=== PATIENT | male | born 1945 | race Caucasian/White ===

== ENCOUNTER 2020-01-07 07:38 | Outpatient (CLI) | payer MEDICARE, SELFPAY | END 2020-01-07 07:39 | disposition home or self-care (01) | LOC: ANHAUDIO 07:40 | PROVIDERS: PCP Internal Medicine; Visit Provider Otolaryngology | DX: H90.3 Sensorineural hearing loss, bilateral (principal) | CPT/HCPCS: 92557; 92567 ==

== ENCOUNTER 2022-08-30 01:14 | Day surgery (SDC) | payer MEDICARE, SELFPAY ==
[2022-08-21 13:56] VITALS: BMI 31.1
--- NOTE | 2022-08-29 11:59 | P.PNAN_ITS ---
Anes - Initial Pre Proc Eval Procedure: Operation Date: 08/30/22 08:00 Proposed Procedures p Screening Colonoscopy - Guillermo Woods MD Date/Time: 08/29/22 11:59 Surgeon: Guillermo Woods MD Pre Op Diagnosis: neoplasm screening Patient Data Age: 77 Gender: M Height: 1.85 m Weight: 107 kg Allergies Allergy/AdvReac Type Severity Reaction Status Date / Time No Known Allergies Allergy Verified 08/30/22 06:56 Home Medications Medication Instructions Recorded Confirmed Type apixaban 5 mg tablet (Eliquis) 5 mg PO BID 12/15/19 08/30/22 History hydrochlorothiazide 25 mg tablet 25 mg PO DAILY 12/15/19 08/30/22 History trxpoizj-nfv-jjtzv acid 300 1 tablet PO DAILY 12/15/19 08/30/22 History mcg-lycopene 600 mcg-lutein 300 mcg tablet (Centrum Silver Men) spironolactone 25 mg tablet 25 mg PO DAILY 12/15/19 08/30/22 History lisinopril 40 mg tablet 40 mg PO BID 08/29/21 08/30/22 History amlodipine 10 mg tablet 10 mg PO DAILY 08/21/22 08/30/22 History atenolol 50 mg tablet 50 mg PO DAILY 08/21/22 08/30/22 History sotalol 80 mg tablet 80 mg PO DAILY 08/21/22 08/30/22 History Patient hx anesthesia problems: none Family hx anesthesia problems: none Results Review: All pre-operative results and documents have been reviewed as part of the pre- operative evaluation. [facility] Past Medical History Medical History (Updated 08/29/22 @ 15:23 by Guillermo Woods MD) A-fib Hyperlipidemia Hypertension YONNY (obstructive sleep apnea) Surgical History Surgical History (Updated 08/29/21 @ 08:53 by Aishwarya Angel CMA) History of back surgery History of foot surgery History of knee replacement History of prostate surgery Social History Social History (Updated 08/29/21 @ 08:52 by Aishwarya Angel CMA) Smoking packs per day: 0.75 Smoking cigarettes per day: 15.0 Years smoked: 25 Smoking pack-years: 18.75 Smoking status: Former smoker Tobacco type: cigarettes Alcohol intake: current Drinks per week: 6 Substance use: never Substance use type: does not use Living arrangements: with family Occupation/Education: retired Spiritual care concerns: No Anes - Eval Final PreProcedure Day of Procedure 08/29/22 11:59 Patient weight: obese Heart: regular rate and rhythm Lungs: clear to auscultation Airway: Mallampati scale class II Neurological: alert and oriented Last oral intake: >/= 8 hours ASA classification: III Emergent: no Anesthetic plan: proceed Anesthesia type and monitoring: general GIVS and standard monitoring Results Review: All pre-operative results and documents have been reviewed as part of the pre- operative evaluation. Informed Consent: The patient's anesthetic plan and its attendant risks and benefits were discussed with the patient/family/POA. Questions were solicited and answers provided to the satisfaction of the patient/family/POA.
--- NOTE | 2022-08-29 15:22 | PM.HPGS ---
History of Present Illness History of Present Illness Consent: Risks, benefits, and alternatives have been discussed and questions answered. Patient agrees to proceed with procedure. Chief complaint: neoplasm screening Narrative: Balwinder Grace is a 77 year old male who was referred for colon cancer screening. He has a history of carcinoma of the prostate. Review of Systems Review of Systems: All systems reviewed & are unremarkable except as noted in HPI and below PMFSH Past Medical History Medical History A-fib Hyperlipidemia Hypertension YONNY (obstructive sleep apnea) Surgical History Surgical History History of back surgery History of foot surgery History of knee replacement History of prostate surgery Social History Social History Smoking packs per day: 0.75 Smoking cigarettes per day: 15.0 Years smoked: 25 Smoking pack-years: 18.75 Smoking status: Former smoker Tobacco type: cigarettes Alcohol intake: current Drinks per week: 6 Substance use: never Substance use type: does not use Living arrangements: with family Occupation/Education: retired Spiritual care concerns: No Meds Home Medications and Allergies Home Medications Medication Instructions Recorded Confirmed Type apixaban 5 mg tablet (Eliquis) 5 mg PO BID 12/15/19 08/30/22 History hydrochlorothiazide 25 mg tablet 25 mg PO DAILY 12/15/19 08/30/22 History zihzrrse-ber-prkde acid 300 1 tablet PO DAILY 12/15/19 08/30/22 History mcg-lycopene 600 mcg-lutein 300 mcg tablet (Centrum Silver Men) spironolactone 25 mg tablet 25 mg PO DAILY 12/15/19 08/30/22 History lisinopril 40 mg tablet 40 mg PO BID 08/29/21 08/30/22 History amlodipine 10 mg tablet 10 mg PO DAILY 08/21/22 08/30/22 History atenolol 50 mg tablet 50 mg PO DAILY 08/21/22 08/30/22 History sotalol 80 mg tablet 80 mg PO DAILY 08/21/22 08/30/22 History Allergies Allergy/AdvReac Type Severity Reaction Status Date / Time No Known Allergies Allergy Verified 08/30/22 06:56 Exam Const: General: alert Orientation/consciousness: patient oriented x3 Resp: Auscultation: clear to auscultation bilaterally Cardio: Rhythm: regular rhythm GI: GI Palp: Yes Soft to palpation and No Tenderness to palpation present (GI) Neuro: General: patient oriented x3 Assessment and Plan Assessment and plan (1) Colon cancer screening: Code(s): Z12.11 - Encounter for screening for malignant neoplasm of colon Status: Acute Assessment and Plan: Colonoscopy with possible biopsy or polypectomy or cautery or injection of substances.
[2022-08-30 06:45] VITALS: BP 105/72; PULSE 75; RESP 16; TEMP 36.1; O2SAT 97; BMI 31.0
[2022-08-30] MEDS: LACTATED RINGERS 1,000 ML 150 ML IV CONT (07:10)
[2022-08-30 08:05] VITALS: BP 90/50; PULSE 57; RESP 15; O2SAT 94
[2022-08-30 08:15] VITALS: BP 104/49; PULSE 65; RESP 18; O2SAT 98
[2022-08-30 08:25] VITALS: BP 122/88; PULSE 69; RESP 18; O2SAT 98
== END 2022-08-30 08:34 | disposition home or self-care (01) ==
PROVIDERS: Visit Provider Internal Medicine Gastroenterology
PROC: 0DJD8ZZ Inspection of Lower Intestinal Tract, Via Natural or Artificial Opening Endoscopic (ICD-10-PCS; CPT 45378; principal; 2022-08-30 08:00)
DX: Z12.11 Encounter for screening for malignant neoplasm of colon (principal); I48.91 Unspecified atrial fibrillation; I10 Essential (primary) hypertension; E78.5 Hyperlipidemia, unspecified; G47.33 Obstructive sleep apnea (adult) (pediatric); Z87.891 Personal history of nicotine dependence; E66.9 Obesity, unspecified; Z68.31 Body mass index [BMI] 31.0-31.9, adult; Z79.01 Long term (current) use of anticoagulants; Z85.46 Personal history of malignant neoplasm of prostate
CPT/HCPCS: G0121; J2704; J7120

== ENCOUNTER 2025-03-25 13:22 | Outpatient (CLI) | payer MEDICARE, SELFPAY ==
--- NOTE | 2025-03-25 13:38 | ECG_ITS ---
Test Date: 2025-03-25 13:54:34 Measurements Intervals [place] Rate: 98 P: 0 MT: 0 QRS: 75 QRSD: 80 T: 61 QT: 336 QTc: 431 Interpretive Statements ATRIAL FIBRILLATION ABNORMAL ECG No previous ECG available for comparison Electronically Signed On 03-25-2025 17:18:35 CERTIFIED WELLNESS PROGRAM COORDINATOR by Rex Redding M.D.
[2025-03-25 15:03] LABS: Anion Gap 6 mmol/L (4-12); Blood Urea Nitrogen 22 mg/dL (9-20); Calcium 9.4 mg/dL (8.4-10.2); Carbon Dioxide 31 mmol/L (22-30); Chloride 105 mmol/L (98-107); Estimated Glomerular Filt Rate 55; Glucose 98 mg/dL (65-110); Potassium 4.6 mmol/L (3.4-5.0); Sodium 142 mmol/L (137-145)
== END 2025-03-25 13:23 | disposition home or self-care (01) ==
PROVIDERS: PCP Internal Medicine; Visit Provider Anesthesiology
DX: R93.41 Abnormal radiologic findings on diagnostic imaging of renal pelvis, ureter, or bladder (principal); I48.91 Unspecified atrial fibrillation; I10 Essential (primary) hypertension; Z87.891 Personal history of nicotine dependence
CPT/HCPCS: 36415; 80048; 93005

== ENCOUNTER 2025-03-30 00:26 | Day surgery (SDC) | payer MEDICARE, SELFPAY ==
[2025-03-24 11:07] VITALS: BMI 30.2
--- NOTE | 2025-03-24 11:21 | PC.NURSE ---
[facility] has started construction of its new state of the art ER which will open Spring 2026. With this, we anticipate parking may be a challenge for some our surgical patients and families. Parking spaces are limited but are available for all Surgical, obstetrics, and ER patients sharing this lot. If you arrive and find you are having a hard time finding a parking space, please note that we understand the challenges, please drive around the hospital and park near Hospital Entrance 1. When you enter this entrance, you can ask a volunteer to direct or take you back to the surgical waiting area to check in. We appreciate everyone?s understanding of these expected challenges while we build for your future. Report to the Outpatient Waiting Room, entrance under the green pavilion located off [address], at time __10:30am on date __03/30/25 . Planned Procedure Time: _12:30pm .? Time changes happen often and if your time is changed the preop area will call you the afternoon before. - You and your visitor will be asked to self-screen and do not enter if you have any COVID symptoms. Please call surgeon if you need to reschedule. - A mask is optional within the hospital at this time. Patients may have clear liquids (water, carbonated beverages, clear teas, apple juice) until 3 hours prior to surgery with a maximum of 20 ounces. - No food from midnight until time of surgery and no smoking, or chewing tobacco (or any form of nicotine). No chewing gum, candy or mints. (0930am) Take only the following medications with a SIP of water on the morning of surgery: ____Amlodipine DO NOT STOP ANY OF YOUR OTHER PRESCRIPTION MEDICATIONS PRIOR TO SURGERY EXCEPT THE FOLLOWING Hold all vitamins and supplements for 3 days per anesthesiologist. Date of last dose is 03/28/25 Medications to discontinue per physician HOLD Eliquis for 2 days prior to surgery per Dr Cuevas Date to take last dose___03/27/25 Please no make-up, nail nauruan, hairspray, perfume, deodorant, or body powder the day of surgery.? No jewelry (including any body piercings) or valuables the day of surgery, leave them at home.? Please take a shower or bath the night before, or the morning of, surgery with an antibacterial soap.? Wear comfortable, loose fitting clothing.? - Jewelry must be removed prior to entering the operating room.? Rings and piercings that are not removed may be cut off. - The hospital will not accept responsibility for valuables.? - Please leave all valuables, including medications, at home the day of surgery. If you are going home after surgery, a licensed class c truck driver must drive you home.? - NO public transportation without another adult if you receive anesthesia. - We recommend that an adult stay with you for 24 hours following discharge. - We also recommend that you do not drive, make important decision, drink alcoholic beverages, or take any drugs that were not prescribed by your health care provider for at least 24 hours after your discharge time. You cannot drive for 24 hours as discussed. For Pediatric surgeries, we recommend two adults accompany the child home. Follow any additional instructions given to you from your surgeon. Telephone instructions given to and asked if any additional questions and then verbalized understanding. Patient advised to call surgeon office or pre surgery nurse liaison [phone] if any additional questions.
[2025-03-30] VITALS (7 sets, daily range): BP systolic 128–158; BP diastolic 78–97; PULSE 69–93; RESP 15–16; TEMP 36.6; O2SAT 96–100
--- OUTSIDE RECORDS SUMMARY | 2025-03-30 00:29 | XMS_ITS | Encounter Summary ---
Author Organization [facility] Address [address] [place], [place] [address] [address] Care Team Providers Care Quantitative Software Engineer Name Role Phone Armand Millard MD Unavailable Christopher Bass MD Primary Care Provider Calin Ledbetter MD Unavailable [phone] Encounter Details Date Type Department Care Team (Late st Contact Info) Description 10/15/2024 Lab Requisition [facility] - DermPath Lab [address] [facility] [place] [address] Caridad Gómez MD [address] [facility] [address] [place] [address] Social History Tobacco Use Types Packs/Day Years Used Date Smoking Tobacco: Some Days Cigars Last attempted to quit: 08/21/1990 Smokeless Tobacco: Never Comments:cigars every few da ys when golf Alcohol Use Standard Drinks/Week Comments Yes 0 (1 standard drink = 0.6 oz pur e alcohol) three times a week; social Sex and Gender Information Value Date Recorded Sex Assigned at Not on file Legal Sex Male 6:23 AM DISPATCHER REFINERY Gender Identity Not on file Sexual Orientation Not on file documented as of this encounter Functional Status * Is person deaf or have serious hearing difficulty? Answer Date of Assessment Author No 10/29/2017 1:31 PM Roman Caceres RN * Is person blind or have serious difficulty seeing? Answer Date of Assessment Author No 10/29/2017 1:31 PM CDT Roman Soto RN * Does person have serious difficulty walking/climbing stairs? Answer Date of Assessment Author No 10/29/2017 1:31 PM CDT Roman Soto RN * Does person have difficulty dressing/bathing? Answer Date of Assessment Author No 10/29/2017 1:31 PM CDT Roman Soto RN * Does person have difficulty doing errands alone? Answer Date of Assessment Author No 10/29/2017 1:31 PM CDT Roman Soto RN documented as of this encounter Mental Status * Does person have difficulty concentrating/remembering/making decisions? Answer Entry Date Author No 10/29/2017 1:31 PM CDT Roman Soto RN documented in this encounter Plan of Treatment Not on file documented as of this encounter Procedures Procedure Name Priority Date/Time Associated Diagnosis Comments DERMATOPATHOLOGY Routine 10/15/2024 1:20 PM CDT documented in this encounter Results * DERMATOPATHOLOGY (10/15/2024 1:20 PM CDT) Case Report Dermatopathology Report Case: [id number] Authorizing Provider: Caridad Gómez MD Collected: 10/15/2024 01:20 PM Ordering Location: [facility] - Received: 10/16/2024 06:41 AM DermPath Lab Pathologist: Cheryl Golden MD Specimens: A) - Skin, right preauricular B) - Skin, left helix C) - Skin, left wrist D) - Skin, left ventral forearm E) - Skin, left forearm 11:44 AM CDT DERMATOPATHOLOGY LABORATORY Final Diagnosis Specimen A. SKIN, right preauricular: BASAL CELL CARCINOMA, NODULAR TYPE, WITH CLEAR CELL CHANGE (C44.319) Specimen B. SKIN, left helix: SQUAMOUS CELL CARCINOMA IN SITU, PRESENT AT THE BASE OF THE SPECIMEN (D04.22) (see microscopic description and comment) Specimen C. SKIN, left wrist: SQUAMOUS CELL CARCINOMA, WELL DIFFERENTIATED (C44.629) Specimen D. SKIN, left ventral forearm: SQUAMOUS CELL CARCINOMA IN SITU, PRESENT AT THE BASE OF THE SPECIMEN (D04.62) (see microscopic description and comment) Specimen E. SKIN, left forearm: SQUAMOUS CELL CARCINOMA, WELL DIFFERENTIATED, SUPERFICIAL PORTIONS OF (C44.629) 11:44 AM [facility] DERMATOPATHOLOGY LABORATORY at 1144 CDT Clinical History A: R/O BCC B-D: R/O SCC E: R/O BCC 11:44 AM [facility] DERMATOPATHOLOGY LABORATORY Gross Description Specimen A: Received is one formalin filled container labeled with the patient's name and designated right preauricular. The specimen consists of a shave biopsy measuring 4x3x1 mm. Jar 0. Specimen B: Received is one formalin filled container labeled with the patient's name and designated left helix. The specimen consists of a shave biopsy measuring 4x3x1 mm. Jar 0. Specimen C: Received is one formalin filled container labeled with the patient's name and designated left wrist. The specimen consists of a shave biopsy measuring 7x6x2 mm. Jar 0. Specimen D: Received is one formalin filled container labeled with the patient's name and designated left ventral forearm. The specimen consists of a shave biopsy measuring 8x7x3 mm. Jar 0. Specimen E: Received is one formalin filled container labeled with the patient's name and designated left forearm. The specimen consists of a shave biopsy measuring 7x6x1 mm. Jar 0. 11:44 AM [facility] DERMATOPATHOLOGY LABORATORY Microscopic Description Specimen A. SKIN, right preauricular: Sections show a neoplasm composed of nodular aggregations of peripherally palisaded basaloid cells, and many neoplastic cells have abundant pallid cytoplasms. Specimen B. SKIN, left helix: The epidermis shows parakeratosis, full thickness disorderly maturation of keratinocytes, mitoses at different levels, and dyskeratotic cells. The lesion extends to the base of the biopsy. COMMENT: An invasive squamous cell carcinoma cannot be ruled out. Specimen C. SKIN, left wrist: Arising in the epidermis and extending into the dermis there are irregularly shaped aggregates of keratinocytes showing evidence of premature cornification. Specimen D. SKIN, left ventral forearm: The epidermis shows parakeratosis, full thickness disorderly maturation of keratinocytes, mitoses at different levels, and dyskeratotic cells. The lesion extends to the base of the biopsy. COMMENT: An invasive squamous cell carcinoma cannot be ruled out. Specimen E. SKIN, left forearm: Arising in the epidermis and extending into the dermis there are irregularly shaped aggregates of keratinocytes showing evidence of premature cornification. The lesion extends to the base of the biopsy. 11:44 AM CDT DERMATOPATHOLOGY LABORATORY Disclaimer An external and internal positive and negative controls are appropriate for the histochemical, immunohistochemical and immunofluorescence stain(s) in this case (if any), except where stated explicitly. The performance characteristics of the stain(s) cited in this report were developed and its performance characteristic determined by the Dermatopathology Laboratory at [facility], directed by Dr. Rylee Cabrera. These tests need not be, and therefore are not, approved by the [place] Food and Drug Administration. The tests are used for clinical purposes. Billing Codes Specimen Charges Stain Charges 14107 11304 38139 32927 21232 1 1 1 1 1 11:44 AM CDT DERMATOPATHOLOGY LABORATORY Embedded Images 11:44 AM CDT DERMATOPATHOLOGY LABORATORY Pathology/Cytology TISSUE SPECIMEN FROM SKIN / Unknown 10/15/2024 1:20 PM CDT 10/16/2024 6:41 AM CDT Miscellaneous samples (specimen) TISSUE SPECIMEN FROM SKIN / Unknown 10/15/2024 1:20 PM CDT 10/16/2024 6:41 AM CDT Miscellaneous samples (specimen) TISSUE SPECIMEN FROM SKIN / Unknown 10/15/2024 1:20 PM CDT 10/16/2024 6:41 AM CDT Miscellaneous samples (specimen) TISSUE SPECIMEN FROM SKIN / Unknown 10/15/2024 1:20 PM CDT 10/16/2024 6:41 AM CDT Miscellaneous samples (specimen) TISSUE SPECIMEN FROM SKIN / Unknown 10/15/2024 1:20 PM CDT 10/16/2024 6:41 AM CDT Caridad Gómez MD LAB - PATHOLOGY/CYTOLOGY OR DERABLES Final Result DERMATOPATHOLOGY LABORATORY [facility] - Department of Dermatology [address], [address] [phone] documented in this encounter Visit Diagnoses Not on filedocumented in this encounter Care Teams Quantitative Software Engineer Relationship Specialty [place] [id number] [facility] [address] [place] [address] PCP - General Internal Medicine 01/01/14 [place] [id number] [facility] [address] [place] [address] Orthopedic Surgery 01/01/14 Calin Ledbetter MD [address] [place] [address] Vice President Of Engineering Cardiovascular Disease 09/21/14 documented as of this encounter
--- OUTSIDE RECORDS SUMMARY | 2025-03-30 00:29 | XMS_ITS ---
Author Organization [facility] Address [address] [place] [address] Care Team Providers Care Grinder And Honer Operator Automatic Name Role Phone Grabiel Barreto MD Primary Care Provider Active Problems Problem Noted Date Diagnosed Date Gout 11/05/2023 Assessment & Plan (11/10/2024 1:49 PM CDT): He is having flares despite allopurinol. Check uric acid. Avoid scallops, seafood in general, tuna, and sardines. Assessment & Plan (11/05/2023 12:47 PM CDT): Check uric acid. Titrate allopurinol for goal uric acid < 6.0. Primary osteoarthritis, right ankle and foot Hypertensive disorder 06/04/2022 Overview (02/04/2025): Hypertensive disorder Thrombocytopenia 12/16/2021 Assessment & Plan (12/16/2021 10:19 AM CDT): History of low to low-normal platelet count No signs of bleeding Will have patient follow up with PCP Onur-karl 12/13/2021 Assessment & Plan (12/16/2021 10:12 AM CDT): Admitted electively for sotalol load for symptomatic Atrial Fibrillation Primary symptom of dyspnea Ambulatory monitor revealed 99% Afib burden Started sotalol 80mg BID on 12/13 QTc stable in SR Continue sotalol 80mg BID DCCV for 12/15 to SR Continue apixaban for anticoagulation Will discharge later today Assessment & Plan (12/15/2021 12:13 PM CDT): Admitted electively for sotalol load for symptomatic Atrial Fibrillation Primary symptom of dyspnea Ambulatory monitor revealed 99% Afib burden Started sotalol 80mg BID on 12/13 QTc stable Continue sotalol 80mg BID Planned DCCV for 12/16, but patient wanting to drive himself home (cannot operate a vehicle for 24 hours post- anesthesia) Will see if anesthesia is available this afternoon Rate controlled and hemodynamically stable Continue apixaban for anticoagulation Continue to monitor on continuous telemetry Assessment & Plan (12/14/2021 12:24 PM CDT): Admitted electively for sotalol load for symptomatic Atrial Fibrillation Primary symptom of dyspnea Ambulatory monitor revealed 99% Afib burden Started sotalol 80mg BID on 12/13 QTc prolonged from admission (from .370 to .450) Holding sotalol for now May need to consider alternate agent - lower sotalol dose unlikely to be beneficial Rate controlled and hemodynamically stable Continue apixaban for anticoagulation Continue to monitor on continuous telemetry Pes anserine bursitis 09/08/2021 09/06/2022 Weakness of both lower extremities 09/08/2021 09/06/2022 Leg cramping 09/05/2021 Assessment & Plan (09/05/2021 10:24 AM CDT): Does not sound like claudication. Encouraged PO hydration. Personal history of prostate cancer 03/19/2021 Overview (03/19/2021): [place] [facility] Assessment & Plan (11/10/2024 1:48 PM CDT): No longer following with Dr. Henson. Check PSA annually. Refer back to oncology if it rises above 1.0. Assessment & Plan (11/05/2023 12:47 PM CDT): Per Dr. Henson. Assessment & Plan (11/01/2022 10:32 AM CDT): PSA's per Dr. Henson. Essential hypertension, benign 02/23/2021 Assessment & Plan (11/10/2024 1:48 PM CDT): At goal on current therapy. Assessment & Plan (11/05/2023 9:10 AM CDT): At goal on current therapy. Assessment & Plan (11/01/2022 9:14 AM CDT): At goal on current therapy. Assessment & Plan (12/15/2021 12:13 PM CDT): BP well controlled Continue amlodipine, atenolol, HCTZ, and lisinopril Assessment & Plan (12/14/2021 12:24 PM CDT): BP relatively well controlled Continue amlodipine, atenolol, HCTZ, and lisinopril Assessment & Plan (09/05/2021 10:02 AM CDT): At goal on current therapy. Assessment & Plan (02/23/2021 8:07 PM CDT): At goal on current therapy. Hyperlipidemia 02/23/2021 Assessment & Plan (11/10/2024 1:48 PM CDT): Check lipids. Cholesterol has not been high enough to warrant statin therapy. Assessment & Plan (11/01/2022 10:32 AM CDT): At goal on current therapy. Assessment & Plan (09/05/2021 10:02 AM CDT): At goal on current therapy. Assessment & Plan (02/23/2021 8:07 PM CDT): LDL at goal without the need for medications. Medicare annual wellness visit, subsequent 02/23 Assessment & Plan (11/10/2024 1:49 PM CDT): Exercise 30 minutes per day 5x weekly. Eat heart healthy (Mediterranean) diet of fruits, vegetables, and whole grains; avoid saturated fats and excess sweets. Colonoscopy due in 2032. Vaccinations are current - recommend flu and COVID shots this fall. Assessment & Plan (11/05/2023 12:49 PM CDT): Exercise 30 minutes per day 5x weekly. Eat heart healthy (Mediterranean) diet of fruits, vegetables, and whole grains; avoid saturated fats and excess sweets. Colonoscopy was normal in 2022; consider repeat in 2032 depending on his health. I recommended a COVID and flu vaccine this fall. Assessment & Plan (01/23/2022 11:04 AM CDT): Reviewed September 2021 labs Follows with Cardiology, Oncology and Sleep Medicine Needs Tdap, annual influenza Will verify PCV13/23 Continue 150 min/weekly of moderate intensity activity Colonoscopy referral Assessment & Plan (02/23/2021 8:08 PM CDT): More than 100 cigarette history and age 76 - screen for AAA with US. Actinic keratosis 08/04/2020 Obesity 08/04/2020 Senile purpura 08/04/2020 YONNY (obstructive sleep apnea) 03/04/2020 Assessment & Plan (11/10/2024 1:49 PM CDT): YONNY. Assessment & Plan (12/14/2021 12:22 PM CDT): Continue CPAP Primary generalized hypertrophic osteoarthrosis 03/04/2020 Assessment & Plan (03/04/2020 10:03 AM CDT): May use topical NSAID (Voltaren) OTC Tylenol PRN (use, s/e reviewed) Chronic atrial fibrillation 03/04/2020 Assessment & Plan (11/10/2024 1:48 PM CDT): Per cardiology. Assessment & Plan (11/05/2023 12:51 PM CDT): Per cardiology. Assessment & Plan (11/01/2022 9:14 AM CDT): Remains on sotalol, atenolol, Eliquis. Sees Dr. Ledbetter. Assessment & Plan (02/23/2021 8:08 PM CDT): Stable. On BB and AC. Management per cards. Current use of correction anticoagulation 020 Current Treatment and Therapy Plans No current plan information found. Past Treatment and Therapy Plans No past plan information found. Lifetime Dose Tracking * Chemical Lifetime Dose Automatic Entry Manual Entr y DLP 237 mGycm 237 mGycm 0 mGycm Resolved Problems Problem Noted Date Diagnosed Date Resolved Date Dyspnea 09/05/2021 01/23/2022 Assessment & Plan (09/05/2021 10:23 AM CDT): This may be due to some combination of deconditioning and afib. I have recommended that he call his medical office representative Dr. Ledbetter to determine if any change in management strategy for his afib is in order (whether he needs a rhythm control strategy or cardioversion). I do not think a stress test is necessary at this time, but will defer any decision about stress testing to his medical office representative. Pain in right hand 03/04/2020 Assessment & Plan (03/04/2020 10:02 AM CDT): Xray and uric acid/BMP today Will refer for possible injections per Ortho based on results of above Prostate cancer 09/30/2019 03/04/2020
--- OUTSIDE RECORDS SUMMARY | 2025-03-30 00:29 | XMS_ITS | Clinical Summary ---
Author Organization [facility] Address [address] [place] [address] Care Team Providers Care Data Management Manager Name Role Phone Grabiel Barreto MD Primary Care Provider Allergies No known active allergies Medications [id number] -lycopen-lutein (CENTRUM SILVER ULTRA MEN'S) 300-600-300 mcg tabletIndicatio ns:supplement Take 1 tablet by mouth nightly 0 Active Eliquis 5 mg tablet TAKE 1 TABLET BY MOUTH TWICE DAILY 180 tablet 3 2 Active hydroCHLOROthia zide (HYDRODIURIL) 25 mg tablet TAKE 1 TABLET BY MOUTH DAILY 90 tablet 3 2 Active spironolactone (ALDACTONE) 25 mg tablet TAKE 1 TABLET BY MOUTH DAILY 90 tablet 3 2 Active lisinopriL (PRINIVIL,ZESTR IL) 40 mg tablet TAKE 1 TABLET BY MOUTH TWICE DAILY 180 tablet 3 2 Active atenoloL (TENORMIN) 50 mg tablet 3 Active allopurinoL (ZYLOPRIM) 100 mg tablet 4 Active mupirocin (BACTROBAN) 2 % ointment 1 APPLIC TOPICALLY THREE TIMES A DAY FOR NOSE BLEEDS APPLY INTRANASALLY TO THE RIGHT NOSTRIL. 4 Active tobramycin-dexA METHasone (TOBRADEX) ophthalmic solution 4 Active erythromycin (ILOTYCIN) ophthalmic ointment Active colchicine (COLCRYS) 0.6 mg tablet TAKE 1 TABLET BY MOUTH TWICE A DAY FOR 3 DAYS THEN TAKE 1 TABLET BY MOUTH DAILY X1 MONTH 99 tablet 1 5 Active Active Problems Problem Noted Date Diagnosed Date [...] Will have patient follow up with PCP A-karl 12/13/2021 Assessment & Plan (12/16/2021 10:12 AM [...] history of prostate cancer 03/19/2021 Overview (03/19/2021): Rosamond 9 Assessment & Plan (11/10/2024 1:48 PM [...] AC. Management per cards. Current use of retirement anticoagulation 020 Resolved Problems Problem Noted Date Diagnosed Date Resolved Date Dyspnea 09/05/2021 01/23/2022 Assessment & Plan (09/05/2021 10:23 AM CDT): This may be due to some combination of deconditioning and afib. I have recommended that he call his hostler helper Dr. Ledbetter to determine if any change in management strategy for his afib is in order (whether he needs a rhythm control strategy or cardioversion). I do not think a stress test is necessary at this time, but will defer any decision about stress testing to his hostler helper. Pain in right hand 03/04/2020 2 Assessment & Plan (03/04/2020 10:02 AM CDT): Xray and uric acid/BMP today Will refer for possible injections per Ortho based on results of above Prostate cancer 09/30/2019 03/04/2020 Encounters Date Type Department Care Team Description 03/24/[address] [facility] Medicine Cardiology [address] 8[address] [place] [address] [place] [address] Calin Ledbetter MD 02/09/2025 11:05 AM CDT Lab [place] [id number] Acute idiopathic gout of right foot (Primary Dx) 02/04/2025 9:30 AM CDT Office Visit [facility] Orthopaedic Surgery [address] 6[address] [place] [address] [place] [address] Trevon Abraham MD Arthritis of carpometacarpal (CMC) joint of right thumb (Primary Dx); Trigger finger of right thumb from Last 3 Months Immunizations Immunization Administration Dates Next Due Pfizer SARS-CoV-2 Monovalent Vaccination (12+ Yrs) PURPLE 06/11/2020,05/27/2020 Surgical History Surgery Date Site/Laterality Comments [place] PROSTECT RETROPUB RAD W/WO NRV SPAR & BI PLV LYM Prostatect Retropubic Radical W/ Bilat Pelv Lymphadenectomy - glimar 4+08 February 2005 (Added by TW Conv) KNEE ARTHROPLASTY Left KNEE ARTHROPLASTY Right CATARACT EXTRACTION W/ INTRAOCULAR LENS IMPLANT 05/07/2016 - 05/06/2017 Left CATARACT EXTRACTION W/ INTRAOCULAR LENS IMPLANT 05/07/2017 - 05/06/2018 Right LUMBAR SPINE SURGERY 1990s x 3; L4-5; L5-S1 HEMORRHOID SURGERY CARDIAC CATHETERIZATION 05/07/1998 - 05/06/1999 pt report after false positive stress CARDIOVERSION 05/07/2011 - 05/06/2012 Medical History Medical History Date Comments Encounter for immunization Need for prophylactic vaccination and inoculation against influenza - Vaccines Prophylactic Need Against Influenza (Added by TW Conv) Personal history of malignan t neoplasm of prostate History of prostate cancer - Gilmar 4+5, Right seminal vesicle involvement. s/p RRP, XRT 06/12 and HT (Added by TW Conv) Arthritis Atrial fibrillation (HCC) Hypertension Spinal stenosis YONNY on CPAP Prostate cancer (HCC) 09/30/2019 Gout Family History Medical History Relation Name Comments Arthritis Father Family history of arthritis - (Added by TW Conv) Cancer Father Family history of malignant neoplasm - (Added by TW Conv) Hypertension Father Family history of hypertension - (Added by TW Conv) Cancer Mother Family history of malignant neoplasm - (Added by TW Conv) Hypertension Mother Family history of hypertension - (Added by TW Conv) Anesthesia problems Neg Hx Heart disease Neg Hx Stroke Neg Hx Relation Name Status Comments Father Mother Social History Tobacco Use Types Packs/Day Years Used Date Smoking Tobacco: Some Days Cigarettes Started: 1964; Last attempted to quit: 1990 Cigars Smokeless Tobacco: Never Tobacco Cessation:Ready to Q uit: Not Asked; Counseling Given: Not Answered Alcohol Use Standard Drinks/Week Comments Yes 0 (1 standard drink = 0.6 oz pur e alcohol) 8/week AUDIT-C Answer Date Recorded Q1: How often do you have a drink containing alc ohol? Monthly or less 12/15/2021 Q2: How many drinks containi ng alcohol do you have on a typical day when you are drinking? 1 or 2 12/15/2021 Q3: How often do you have si x or more drinks on one occasion? Never 12/15/2021 PHQ-2 Answer Date Recorded PHQ-2 Total Score (If total score is 3 or more points, staff should administer the PHQ-9) 0 11/10/2024 Exercise Vital Sign Answer Date Recorde d On average, how many days pe r week do you engage in moderate to strenuous exercise (like a brisk walk)? 0 days 02/23/2021 On average, how many minutes do you engage in exercise at this level? 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 Gender Identity Not on file Sexual Orientation Not on file Last Filed Vital Signs Vital Sign Reading Time Taken Comments Blood Pressure 104/69 11/10/2024 9:40 AM CDT Pulse 91 11/10/2024 9:40 AM CDT Temperature 36.6 C (97.8 F) 09/09/2024 8:50 AM CDT Respiratory Rate 18 09/09/2024 8:50 AM CDT Oxygen Saturation 97% 11/10/2024 9:40 AM CDT Inhaled Oxygen Concentration - - Weight 106.5 kg (234 lb 12.8 oz) 11/10/2024 9:40 AM CDT Height 180.3 cm (5' 11) 11/10/2024 9:40 AM CDT Body Mass Index 32.75 11/10/2024 9:40 AM CDT Plan of Treatment Scheduled Procedures Name Priority Associated Diagnoses Date/Ti me COLONOSCOPY Colon cancer screening COLONOSCOPY Screening for malignant neoplasm of colon COLONOSCOPY Colon cancer screening Health Maintenance Due Date Last Done Comments DTaP/Tdap/Td Vaccine (1 - Tdap) 1956 Pneumococcal vaccine 65+ (2 of 2 - PCV) 05/07/2015 05/07/2014 Covid-19 Vaccine (3 - 2024-2 6 season) 2025 06/11/2020, 05/27/2020 Influenza Vaccine (#1) 2025 9, 02/11/2018, 02/16/2017, Additional history exists Depression Screening 11/10/2025 11/10/2024, 11/10/2024, 11/05/2023, Additional history exists Fall Risk Assessment 11/10/2025 11/10/2024, 11/05/2023, 01/23/2022, Additional history exists Well Visit 65+ 11/10/2025 11/10/2024, 05/2023, 01/23/2022, Additional history exists Zoster Vaccine Completed 12/19/2017, 09/06, 05/10/2010 Abdominal Aortic Aneurysm (A AA) Screen Completed 04/01/2021 Hepatitis B Screening Completed 11/10/2024 Hepatitis C Screening Completed 11/10/2024 Procedures Procedure Name Priority Date/Time Associated Diagnosis Comments EGFR Routine 02/09/2025 11:10 AM CDT Acute idiopathic gout of right foot URIC ACID Routine 02/09/2025 11:10 AM CDT Acute idiopathic gout of right foot COMPREHENSIVE METABOLIC PANEL Routine 02/09/2025 11:10 AM CDT Acute idiopathic gout of right foot [place] INJECTION 1 TENDON SHEATH/LIGAMENT APONEUROSIS Routine 02/04/2025 9:30 AM CDT Trigger finger of right thumb HEPATITIS C ANTIBODY Routine 11/10/2024 10:00 AM CDT Encounter for hepatitis C screening test for low risk patient US ABDOMINAL AORTIC ANEURYSM SCREENING Schedule Routine, Read Routine (OP Routine) 04/01/2021 9:00 AM PIN MAKER Encounter for abdominal aortic aneurysm (AAA) screening from Last 3 Months or Most Recently Relevant to Health Maintenance Results * eGFR (02/09/2025 11:10 AM CDT) eGFR 71 >=60 mL/min/1. 73 m2 Comment: Interpretive Data Reference Interval Normal >/= 90 mL/min/1.73m2 Mildly decreased* 60 - 89 mL/min/1.73m2 Mildly to moderately decreased 45 - 59 mL/min/1.73m2 Moderately to severely decreased 30 - 44 mL/min/1.73m2 Severely decreased 15 - 29 mL/min/1.73m2 Kidney Failure < 15 mL/min/1.73m2 *Relative to young adult level Estimated glomerular filtration rate is determined by the 2020 CKD-EPI equation recommended by the National Kidney Foundation (A Unifying Approach to GFR Estimation: Recommendations of the NKF-ASK Task Force on Reassessing the Inclusion of Race in Diagnosing Kidney Disease, JASN 2020). The CKD-EPI equation should not be used for patients with unstable renal function and has not been validated in children and those over 70. Current interpretive data was last reviewed 2021. Blood 02/09/2025 11:1 0 AM CDT 02/09/2025 1:52 PM CDT Saúl Carpio Jr., DP LAB BLOOD ORDERABLES F inal Result Performing Organization Address City/[facility] Co de Phone Number [address] [address] * Uric acid (02/09/2025 11:10 AM CDT) Pathologist [facility] Uric acid 3.8 3.0 - 8.0 mg/dL Blood Venous blood specimen / Unknown 02/09/2025 11:10 AM CDT 02/09/2025 1:52 PM CDT Saúl Carpio Jr., [facility] LAB BLOOD ORDERABLES F inal Result Performing Organization Address [facility] de Phone Number [address] [address] * Comprehensive metabolic panel (02/09/2025 11:10 AM CDT) [facility] Sodium 138 135 - 145 mmol/L Potassium, pl 4.8 3.3 - 4.9 mmol/L [facility] Chloride 102 97 - 110 mmol/L [facility] CO2 27 22 - 32 mmol/L [facility] Anion gap 9 2 - 15 mmol/L [facility] BUN 20 6 - 25 mg/dL [facility] Creatinine 1.07 0.80 - 1.30 mg/dL [facility] Glucose 95 70 - 199 mg/dL [facility] Comment: Interpretive Data Fasting glucose >/= 126 mg/dl is diagnostic for diabetes. Fasting is defined as no caloric intake for at least 8 hours. Fasting glucose between 100 mg/dl to 125 mg/dl is diagnostic of prediabetes. In a patient with classic symptoms of hyperglycemia or hyperglycemic crisis, a random glucose >/= 200 mg/dl is diagnostic for diabetes. In the absence of unequivocal hyperglycemia, results should be confirmed by repeat testing. The classification and Diagnosis of Diabetes Diabetes Care 2021; 46: S19-S40. Current interpretive data was last revised 2022. Calcium 9.3 8.5 - 10.3 mg/dL [facility] Bilirubin, total 0.7 0.1 - 1.2 mg/dL [facility] Protein, pl 7.3 6.5 - 8.5 g/dL [facility] Albumin 4.2 3.5 - 5.0 g/dL [facility] Alk phos 41 40 - 130 Units/L [facility] ALT 21 7 - 55 Units/L [facility] AST 36 10 - 50 Units/L [facility] Blood Venous blood specimen / Unknown 02/09/2025 11:10 AM CDT 02/09/2025 1:52 PM CDT us Saúl Carpio Jr., DPM LAB BLOOD ORDERABLES F inal Result [facility] [address] [facility] Department [place] [address] * [place] INJECTION 1 TENDON SHEATH/LIGAMENT APONEUROSIS (02/04/2025 9:30 AM CDT) Narrative Trevon Abraham MD - 02/04/2025 9:30 AM CDT Trevon Abraham MD 02/04/2025 8:20 PM Hand / Upper Extremity Injection: R thumb A1 Performed by: Trevon Abraham MD Authorized by: Trevon Abraham MD Consent Given by: Patient Verbal consent obtained?: Yes Indications: Pain Condition: trigger finger Location: Thumb Site: R thumb A1 Prep: patient was prepped and draped in usual sterile fashion Needle Size: 25 G Approach: Dorsal Medications Right Thumb Injection: 1 mL lidocaine 10 mg/mL (1 %); 40 mg methylPREDNISolone acetate 40 mg/mL Patient tolerance: Patient tolerated the procedure well with no immediate complications After a discussion of the pros, cons, risks, and benefits of a cortisone injection, the patient requested that we proceed. We specifically discussed the risks of skin lightening, subcutaneous fat atrophy, pain upon injection and the possibility of a flare reaction. The patient wished to proceed. us Trevon Abraham MD IN CLINIC/BEDSIDE ORDERAB LES Final Result * Hepatitis C antibody Blood (11/10/2024 10:00 AM CDT) A-HCV II 0.06 Negative <0.90 [facility] GMDA Comment: <=0.9 negative 0.9-<1.0 borderline >= 1 positive Blood 11/10/2024 10:0 0 AM CDT 11/10/2024 10:12 AM CDT us Grabiel Barreto MD LAB MICROBIOLOGY - GENE RAL ORDERABLES Final Result [facility] [address] [id number] * US Abdominal Aortic Aneurysm Screening (04/01/2021 9:00 AM PIN MAKER) Anatomical Region Laterality Modality Abdomen Ultrasound 04/01/2021 2:31 PM PIN MAKER Impressions 04/01/2021 2:31 PM PIN MAKER UNREMARKABLE ABDOMINAL AORTA. Electronically signed by: Tad Ochoa M.D. Narrative 04/01/2021 2:31 PM PIN MAKER EXAMINATION: US ABDOMINAL AORTIC ANEURYSM SCREENING HISTORY: ] Tobacco Abuse, screening for aneurysm ORDER DATE: 04/01/2021 8:30 AM COMPARISON: None TECHNIQUE: Sonogram of the abdominal aorta is performed for purposes of visualization of the aortic outline and measurements obtained at the upper mid and lower abdominal levels including the common iliac vessels. FINDINGS: Cross-sectional diameter in the upper aorta is 24 mm, mid aorta 20 mm, distal aorta 20 mm. As visualized, there is no aortic aneurysm. The aorta is approximately 18 mm in diameter. It demonstrates minimal wall thickening Procedure Note Tad Ochoa MD - 04/01/2021 EXAMINATION: US ABDOMINAL AORTIC ANEURYSM SCREENING HISTORY: ] Tobacco Abuse, screening for aneurysm ORDER DATE: 04/01/2021 8:30 AM COMPARISON: None TECHNIQUE: Sonogram of the abdominal aorta is performed for purposes of visualization of the aortic outline and measurements obtained at the upper mid and lower abdominal levels including the common iliac vessels. FINDINGS: Cross-sectional diameter in the upper aorta is 24 mm, mid aorta 20 mm, distal aorta 20 mm. As visualized, there is no aortic aneurysm. The aorta is approximately 18 mm in diameter. It demonstrates minimal wall thickening IMPRESSION: UNREMARKABLE ABDOMINAL AORTA. Electronically signed by: Tad Ochoa M.D. Grabiel Barreto MD [facility] PROCEDURES Final Result from Last 3 Months or Most Recently Relevant to Health Maintenance Insurance MEDICARE [facility] MEDICARE [facility] MEDICARE [facility] MEDICARE [facility] MEDICARE [facility] [place] [address] [phone] Advance Directives For more information, please contact: [phone] * Full Code (Latest Code Status on File) Date Activated Date Inactivated Comments 12/13/2021 1:43 PM 12/16/2021 4:38 PM Care Teams Data Management Manager Relationship Specialty Start Date End Date Grabiel Barreto MD PCP - General Endocrinology Diabetes & Metabolism 02/23/21
--- OUTSIDE RECORDS SUMMARY | 2025-03-30 00:29 | XMS_ITS | Encounter Summary ---
Author Organization [facility] Address [address] [place] [address] Phone Care Team Providers Care Physical Sciences Instructor Name Role Phone Christopher Bass MD Primary Care Provider [phone] Grabiel Barreto MD Primary Care Provider Christopher Bass MD Primary Care Provider [phone] Grabiel Barreto MD Primary Care Provider Encounter Details Date Type Department Care Team (Late st Contact Info) Description 09/21/2017 Orders Only 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 Gender Identity Not on file Sexual Orientation Not on file documented as of this encounter Plan of Treatment Scheduled Procedures Name Priority Associated Diagnoses Date/Ti me COLONOSCOPY Colon cancer screening COLONOSCOPY Screening for malignant neoplasm of colon COLONOSCOPY Colon cancer screening documented as of this encounter Procedures Procedure Name Priority Date/Time Associated Diagnosis Comments DISCHARGE LABORATORY CUMULATIVE REPORT 09/21/2017 12:00 AM CDT documented in this encounter Results * DISCHARGE LABORATORY CUMULATIVE REPORT (09/21/2017 12:00 AM CDT) Narrative 09/21/2017 12:00 AM CDT Ordered by an unspecified provider. Historical Provider LAB BLOOD ORDERABLES Alida l Result documented in this encounter Visit Diagnoses Not on filedocumented in this encounter Additional Health Concerns Infection Onset Date Last Indicated Resolved Time Exposure, COVID-19 Comment:Added automatically based on COVID19 lab answers indicating exposure risk 02/12/2023 02/12/2023 02/22/2023 3:05 AM C DT COVID: Suspected 02/12/2023 02/12/2023 02/12/2023 10:17 AM CDT COVID: Suspected 02/12/2023 02/12/2023 02/12/2023 3:31 PM CDT COVID: Suspected 11/30/2023 11/30/2023 11/30/2023 3:20 PM CDT COVID19 11/30/2023 11/30/2023 12/10/2023 3:05 AM CDT COVID: Recovered Comment:Added based on recent COVID infection. 12/10/2023 01/02/2024 03/09/2024 3:[address] COVID: Suspected 01/02/2024 01/02/2024 01/02/2024 8:41 AM CDT documented as of this encounter Care Teams Physical Sciences Instructor Relationship Specialty Start Date End Date Christopher Bass MD [address] [address] PCP - General 08/22/16 11/03/20 Grabiel Barreto MD [address] [address] PCP - General Endocrinology Diabetes & Metabolism 11/04/20 12/13/20 Christopher Bass MD [address] [address] PCP - General 12/14/20 02/22/21 Grabiel Barreto MD [address] [address] PCP - General Endocrinology Diabetes & Metabolism 02/23/21 documented as of this encounter
--- OUTSIDE RECORDS SUMMARY | 2025-03-30 00:30 | XMS_ITS | Encounter Summary ---
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 Answer Date of Assessment Author No 10/29/2017 1:31 PM Roman Caceres RN * Is person blind or have serious difficulty seeing? Answer Date of Assessment Author No 10/29/2017 1:31 PM Roman Caceres RN * Does person have serious difficulty [...] Procedure Name Priority Date/Time Associated Diagnosis Comments SARS-COV-2 (COVID-19) IN HOUSE Routine 10/10/2019 12:57 PM CDT documented in this encounter Results * SARS-COV-2 (COVID-19) IN HOUSE (10/10/2019 12:57 PM CDT) COVID-19 PCR Not detected Not detected, Invalid 10/11/2019 10:22 PM CDT [facility] Microbiology SPECIMEN FROM NASOPHARYNGEAL STRUCTURE / Unknown Collection / Unknown 10/10/2019 12:57 PM CDT 10/11/2019 1:26 PM CDT Narrative [facility] - 10/11/2019 10:22 PM CDT This Real Time RT-PCR assay was developed and its performance characteristics determined by [facility]. This test has been authorized by the Food and Drug administration (FDA)under an Emergency Use Authorization (EUA). This test has been validated in accordance with the FDA's guidance document Policy for Diagnostic Testing in Laboratories Certified to perform High Complexity Testing under CLIA prior to Emergency Use Authorization for Coronavirus Disease-2019 during the Public Health Emergency issued on July 05, 2019. FDA independent review of this validation is pending. This test is only authorized for the duration of time the declaration that circumstances exist justifying the authorization of emergency use of in vitro diagnostic tests for detection of SARS-CoV-2 virus and/or diagnosis of COVID-19 infection under section 564(b)(1) of the Act, 21 U.S.C 360bbb-3 (b)(1), unless the authorization is terminated or revoked sooner. us LAB - MICROBIOLOGY ORDERABLES Fi nal Result [facility] [address] [place] [address], [facility] [phone] documented in this encounter Visit Diagnoses Not on filedocumented in this encounter Additional Health Concerns Infection Onset Date Last Indicated Resolved Time COVID-19 Under Investigation 10/11/2019 10/10/2019 10/11/2019 10:22 PM CDT documented as of this encounter Care Teams Body Welder Relationship Specialty [place] [address] [place] [address] PCP - General Internal Medicine 01/01/14 [place] [address] [address] [place] [address] Orthopedic Surgery 01/01/14 Calin Ledbetter MD [address] [place] [address] Body Welder Cardiovascular Disease 09/21/14 documented as of this encounter
--- OUTSIDE RECORDS SUMMARY | 2025-03-30 00:30 | XMS_ITS | Encounter Summary ---
Author Organization [facility] Address [address] [place] [address] [place] [address] Care Team Providers Care Bottling Machine Operator Name Role Phone Armand Millard MD Unavailable [phone] Christopher Bass MD Primary Care Provider Calin Ledbetter MD Unavailable [phone] Encounter Details Date Type Department Care Team (Late st Contact Info) Description 11/20/2019 Lab Requisition [facility] Care DermPath Lab [address] [place] [id number] Lázaro [place] [address] Social History Tobacco Use Types Packs/Day Years [...] on file 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 0 4:51 PM CDT DERMATOPATHOLOGY LABORATORY Gross Description Specimen A: Received is one formalin filled container labeled with the patient's name and designated right upper cutaneous lip. The specimen consists of a shave biopsy measuring 4v1x8gw. Jar 0. 0 4:51 PM CDT DERMATOPATHOLOGY LABORATORY Microscopic Description Specimen A. SKIN, right upper cutaneous lip: In the dermis, there are dilated vascular spaces surrounded by widely spaced endothelial cells. 0 4:51 PM CDT DERMATOPATHOLOGY LABORATORY Disclaimer An external and internal positive and negative controls are appropriate for the histochemical, immunohistochemical and immunofluorescence stain(s) in this case (if any), except where stated explicitly. The performance characteristics of the stain(s) cited in this report were developed and its performance characteristic determined by the Dermatopathology Laboratory at [facility], directed by Dr. Rylee Cabrera. These tests need not be, and therefore are not, approved by the [place] Food and Drug Administration. The tests are used for clinical purposes. Billing Codes Specimen Charges Stain Charges 14965 1 0 4:51 PM CDT DERMATOPATHOLOGY LABORATORY Embedded Images 0 4:51 PM CDT DERMATOPATHOLOGY LABORATORY Pathology/Cytolog y TISSUE SPECIMEN FROM SKIN / Unknown 11/19/2019 11/20/2019 12:50 PM CDT Lázaro Bryan MD LAB - PATHOLOGY/CYTOLOGY ORD ERABLES Final Result DERMATOPATHOLOGY LABORATORY [facility] - Department of Dermatology Data Warehousing Manager Center/[address] [phone] documented in this encounter Visit Diagnoses Not on filedocumented in this encounter Care Teams Bottling Machine Operator Relationship Specialty [place] [address] [place] [address] PCP - General Internal Medicine 01/01/14 [place] [address] [place] [address] Orthopedic Surgery 01/01/14 Calin Ledbetter MD [address] [place] [address] Wagon Washer Cardiovascular Disease 09/21/14 documented as of this encounter
--- OUTSIDE RECORDS SUMMARY | 2025-03-30 00:30 | XMS_ITS | Encounter Summary ---
Author Organization [facility] Address [address] [place] [address] [place] [address] Care Team Providers Care Hydramatic Specialist Name Role Phone Armand Millard MD Unavailable [phone] Christopher Bass MD Primary Care Provider Calin Ledbetter MD Unavailable [phone] Encounter Details Date Type Department Care Team (Late st Contact Info) Description 11/03/2020 Lab Requisition [facility] Care DermPath Lab [address] [place] [phone] Lázaro [place] [address] Social History Tobacco Use Types Packs/Day Years [...] on file 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 Gender Identity Not on file Sexual Orientation [...] Entry Date Author No 10/29/2017 1:31 PM Roman Caceres RN documented in this encounter Plan of Treatment Not on file documented as of this encounter Procedures Procedure Name Priority Date/Time Associated Diagnosis Comments DERMATOPATHOLOGY Routine 11/02/2020 12:0 0 AM CDT documented in this encounter Results * DERMATOPATHOLOGY (11/02/2020 12:00 AM CDT) Case Report Dermatopathology Report Case: [id number] Authorizing Provider: Lázaro Bryan MD Collected: 11/02/2020 12:00 AM Ordering Location: [facility] DermPath Lab Received: 11/03/2020 01:16 PM Pathologist: Brook Golden MD Specimens: A) - Skin, left mid clavicle B) - Skin, below right apical triangle of lip C) - Skin, right lateral cutaneous lip 7:58 AM CDT DERMATOPATHOLOGY LABORATORY Amended Report Amendment: Site A: Changed left mid clavicle to left medial clavicle Site C: Changed from right lateral cutaneous lip to right lateral upper cutaneous lip. 7:58 AM CDT DERMATOPATHOLOGY LABORATORY Final Diagnosis Specimen A. 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 SKIN, below right apical triangle of lip: FOLLICULITIS, SUPPURATIVE; IN ASSOCIATION WITH INTRAFOLLICULAR BACTERIA AND GRANULOMATOUS DERMATITIS CONSISTENT WITH RUPTURE (L73.8) (see microscopic description and comment) Specimen C. SKIN, right lateral upper cutaneous lip: BASAL CELL CARCINOMA, NODULAR TYPE (C44.319) 7:58 AM CDT DERMATOPATHOLOGY LABORATORY Amendment electronically signed by Brook Golden MD on 11/25/2020 at 0758 CDT at 1445 CDT Clinical History A-C: R/O BCC. 7:58 AM CDT DERMATOPATHOLOGY LABORATORY Gross Description Specimen A: Received is one formalin filled container labeled with the patient's name and designated left mid clavicle. The specimen consists of a shave biopsy measuring 64p8q4vj. Jar 0. Specimen B: Received is one formalin filled container labeled with the patient's name and designated below right apical triangle of lip. The specimen consists of a shave biopsy measuring 8k2n5ye. Jar 0. Specimen C: Received is one formalin filled container labeled with the patient's name and designated right lateral cutaneous lip. The specimen consists of a shave biopsy measuring 9u6w1sj. Jar 0. 7:58 AM CDT DERMATOPATHOLOGY LABORATORY Microscopic Description Specimen A. SKIN, left medial clavicle: The epidermis shows parakeratosis, full thickness disorderly maturation of keratinocytes, mitoses at different levels, and dyskeratotic cells. Sections show an adjacent acanthotic lesion composed of relatively uniform keratinocytes. There is hyperkeratosis and pseudo horn cysts formation. Specimen B. SKIN, below right apical triangle of lip: Epidermis and portions of superficial dermis are present for evaluation. Sections show rupture of the follicular infundibulum, with numerous neutrophils. Neutrophils, histiocytes, and multinucleated giant cells are present within the adjacent superficial dermis. Tissue gram stain highlights intrafollicular bacterial cocci and rods. Grocott's methenamine silver (GMS) stain fails to highlight fungal elements in the available sections. COMMENT: Clinical correlation with culture is recommended if clinically indicated. Specimen C. SKIN, right lateral upper cutaneous lip: Within the dermis there are aggregates of basaloid cells with a high nuclear to cytoplasmic ratio and peripheral palisading. 7:58 AM CDT DERMATOPATHOLOGY LABORATORY Disclaimer An external and internal positive and negative controls are appropriate for the histochemical, immunohistochemical and immunofluorescence stain(s) in this case (if any), except where stated explicitly. The performance characteristics of the stain(s) cited in this report were developed and its performance characteristic determined by the Dermatopathology Laboratory at [facility], directed by Dr. Rylee Cabrera. These tests need not be, and therefore are not, approved by the [place] Food and Drug Administration. The tests are used for clinical purposes. Billing Codes Specimen Charges Stain Charges 12060 98462 97374 1 1 1 81634 47140 1 1 1 7:58 AM CDT DERMATOPATHOLOGY LABORATORY Embedded Images 1 7:58 AM CDT DERMATOPATHOLOGY LABORATORY Pathology/Cytology TISSUE SPECIMEN FROM SKIN / Unknown 11/02/2020 11/03/2020 1:16 PM CDT Miscellaneous samples (specimen) TISSUE SPECIMEN FROM SKIN / Unknown 11/02/2020 11/03/2020 1:16 PM CDT Miscellaneous samples (specimen) TISSUE SPECIMEN FROM SKIN / Unknown 11/02/2020 11/03/2020 1:16 PM CDT Lázaro Bryan MD LAB - PATHOLOGY/CYTOLOGY ORD ERABLES Edited Result - Final DERMATOPATHOLOGY LABORATORY [facility] - Department of Dermatology [facility] Medicine [address] [place] [address], [address] [phone] documented in this encounter Visit Diagnoses Not on filedocumented in this encounter Care Teams Hydramatic Specialist Relationship Specialty [place] [address] [place] [address] PCP - General Internal Medicine 01/01/14 [place] [address] [place] [address] Orthopedic Surgery 01/01/14 Calin Ledbetter MD [address] [place] [phone] Loan Broker Cardiovascular Disease 09/21/14 documented as of this encounter
--- OUTSIDE RECORDS SUMMARY | 2025-03-30 00:30 | XMS_ITS | Encounter Summary ---
Author Organization [facility] Address [address] [place] [address] [place] [address] Care Team Providers Care Supervisor [address] Name Role Phone Armand Millard MD Unavailable Christopher Bass MD Primary Care Provider [phone] Calin Ledbetter MD Unavailable [phone] Encounter Details Date Type Department Care Team (Late st Contact Info) Description 03/05/2023 Lab Requisition [facility] - DermPath Lab [address] [place] [phone] Lázaro Bryan [place] [address] Social History Tobacco Use Types Packs/Day Years [...] on file 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 Answer Date of Assessment Author No 10/29/2017 1:31 PM Roman Caceres, RN * Is person blind or have [...] Priority Date/Time Associated Diagnosis Comments DERMATOPATHOLOGY Routine 02/28/2023 3:33 AM CDT documented in this encounter Results * DERMATOPATHOLOGY (02/28/2023 3:33 AM CDT) Case Report Dermatopathology Report Case: [id number] Authorizing Provider: Lázaro Bryan MD Collected: 02/28/2023 03:33 AM Ordering Location: [facility] DermPath Lab Received: 03/05/2023 09:59 AM Pathologist: Lyla Cabrera MD Specimens: A) - Skin, right side of nose B) - Skin, right lat prox ext FA C) - Skin, dorsal right hand D) - Skin, right sup lat calf E) - Skin, right med distal calf above ankle 3 5:25 PM CDT DERMATOPATHOLOGY LABORATORY Final Diagnosis Specimen A. SKIN, right side of nose: BENIGN VERRUCOUS KERATOSIS (L82.1) Specimen B. 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 SKIN, dorsal right hand: HYPERPLASTIC (HYPERTROPHIC) ACTINIC KERATOSIS (L57.0) Specimen D. 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 SKIN, right med distal calf above ankle: BASAL CELL CARCINOMA, NODULAR TYPE (C44.712) 3 5:25 PM T DERMATOPATHOLOGY LABORATORY at 1725 CDT Clinical History A-E: R/O SCC, BCC 3 5:25 PM T DERMATOPATHOLOGY LABORATORY Gross Description Specimen A: Received is one formalin filled container labeled with the patient's name and designated right side of nose. The specimen consists of a shave biopsy measuring 6x4x1 mm. Jar 0. Specimen B: Received is one formalin filled container labeled with the patient's name and designated right lat prox ext FA. The specimen consists of a shave biopsy measuring 11x8x2 mm. Jar 0. Specimen C: Received is one formalin filled container labeled with the patient's name and designated dorsal right hand. The specimen consists of a shave biopsy measuring 98i08t1 mm. Jar 0. Specimen D: Received is one formalin filled container labeled with the patient's name and designated right sup lat calf. The specimen consists of a shave biopsy measuring 10x8x1 mm. Jar 0. Specimen E: Received is one formalin filled container labeled with the patient's name and designated right med distal calf above ankle. The specimen consists of a shave biopsy measuring 66t76v3 mm. Jar 0. 3 5:25 PM CDT DERMATOPATHOLOGY LABORATORY Microscopic Description Specimen A. SKIN, right side of nose: Sections show hyperkeratosis, papillomatosis, hypergranulosis, and acanthosis. These histological findings can be seen in a verruca vulgaris or a seborrheic keratosis. Specimen B. SKIN, right lat prox ext FA: The epidermis shows parakeratosis, full thickness disorderly maturation of keratinocytes, mitoses at different levels, and dyskeratotic cells. Specimen C. SKIN, dorsal right hand: There is hyperkeratosis alternating with parakeratosis. There is epidermal hyperplasia with disorderly maturation of keratinocytes with nuclear pleomorphism confined to the lower half of the epidermis. Specimen D. SKIN, right sup lat calf: Sections show nests of cells with pale cytoplasm and thin strands of relatively normal keratinocytes intervening. There is overlying parakeratosis. Specimen E. SKIN, right med distal calf above ankle: Within the dermis there are aggregates of basaloid cells with a high nuclear to cytoplasmic ratio and peripheral palisading. 3 5:25 PM CDT DERMATOPATHOLOGY LABORATORY Disclaimer An external and internal positive and negative controls are appropriate for the histochemical, immunohistochemical and immunofluorescence stain(s) in this case (if any), except where stated explicitly. The performance characteristics of the stain(s) cited in this report were developed and its performance characteristic determined by the Dermatopathology Laboratory at [facility], directed by Dr. Rylee Cabrera. These tests need not be, and therefore are not, approved by the [place] Food and Drug Administration. The tests are used for clinical purposes. Billing Codes Specimen Charges Stain Charges 07154 43102 95359 58935 77568 1 1 1 1 1 3 5:25 PM CDT DERMATOPATHOLOGY LABORATORY Embedded Images 3 5:25 PM CDT DERMATOPATHOLOGY LABORATORY Pathology/Cytology TISSUE SPECIMEN FROM SKIN / Unknown 02/28/2023 3:33 AM CDT 03/05/2023 9:59 AM CDT Miscellaneous samples (specimen) TISSUE SPECIMEN FROM SKIN / Unknown 02/28/2023 3:33 AM CDT 03/05/2023 9:59 AM CDT Miscellaneous samples (specimen) TISSUE SPECIMEN FROM SKIN / Unknown 02/28/2023 3:33 AM CDT 03/05/2023 9:59 AM CDT Miscellaneous samples (specimen) TISSUE SPECIMEN FROM SKIN / Unknown 02/28/2023 3:33 AM CDT 03/05/2023 9:59 AM CDT Miscellaneous samples (specimen) TISSUE SPECIMEN FROM SKIN / Unknown 02/28/2023 3:33 AM CDT 03/05/2023 9:59 AM CDT us Lázaro Bryan MD LAB - PATHOLOGY/CYTOLOGY ORD ERABLES Final Result DERMATOPATHOLOGY LABORATORY [facility] - Department of Dermatology [facility] Medicine [address] [place] [address], [address] [place] [address], [facility] [phone] documented in this encounter Visit Diagnoses Not on filedocumented in this encounter Care Teams Supervisor Engines Road Relationship Specialty [place] [address] [place] [address] PCP - General Internal Medicine 01/01/14 [place] [address] [address] [place] [address] Orthopedic Surgery 01/01/14 Calin Ledbetter MD [address] [place] [address] Injection Molding Supervisor Cardiovascular Disease 09/21/14 documented as of this encounter
--- OUTSIDE RECORDS SUMMARY | 2025-03-30 00:30 | XMS_ITS | Clinical Summary ---
Author Organization [facility] Address [address] [facility] [place] [address] Care Team Providers Care Apple Press Operator Name Role Phone Armand Millard MD Unavailable [phone] Christopher Bass MD Primary Care Provider [phone] Calin Ledbetter MD Unavailable [phone] Source Comments [facility],non-owned Affiliates and Associated Physician Practices is amultiple site organization consisting of ambulatory clinics and hospital sitesin [place], [place], [place] and [place]. This disclosure is being madepursuant to the Care Everywhere program and may not contain all information available regarding this patient. Last updated 18.[facility] Vennli Allergies No known active allergies Medications * Be aware that medications may not be up to date on this document. Alwaysverify current medications with the patient. hydrochlorothia zide (HYDRODIURIL) 25 MG tablet Take 25 mg by mouth once daily. Active atenolol (TENORMIN) 100 MG tablet Take 100 mg by mouth once daily. Active spironolactone (ALDACTONE) 25 MG tablet Take 25 mg by mouth once daily. Active lisinopril (PRINIVIL; ZESTRIL) 40 MG tablet Take 40 mg by mouth 2 times daily. Active amLODIPine (NORVASC) 10 MG tablet once daily 08/10/2017 Active ELIQUIS 5 MG tablet 2 times daily 08/10/2017 Active Multiple Vitamins-Minera ls (CENTRUM PO) Take by mouth at bedtime Active Active Problems Problem Noted Date Diagnosed Date Weakness of both lower extremities 09/08/2021 Pes anserine bursitis 09/08/2021 Personal history of prostate cancer 03/19/2021 Overview (09/08/2021): Aster 9 Hyperlipidemia 02/23/2021 Overview (09/08/2021): Last Assessment & Plan: At goal on current therapy. Chronic atrial fibrillation 03/04/2020 Overview (09/08/2021): Last Assessment & Plan: Stable. On BB and AC. Management per cards. YONNY (obstructive sleep apnea) 03/04/2020 Essential hypertension, benign 10/14/2019 Overview (09/08/2021): Last Assessment & Plan: At goal on current therapy. Status post right knee replacement 10/29/2017 Primary osteoarthritis of right knee 08/21/2017 History of left knee replacement 08/21/2017 Immunizations Immunization Administration Dates Next Due INFLUENZA VACCINE, HIGH-DOSE , QUADR. 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 Gender Identity Not on file Sexual Orientation Not on file Last Filed Vital Signs Vital Sign Reading Time Taken Comments Blood Pressure 111/66 10/31/2017 7:26 AM CDT Pulse 109 10/31/2017 7:26 AM CDT Temperature 37 C (98.6 F) 10/31/2017 7:26 AM CDT Respiratory Rate 18 10/31/2017 7:26 AM CDT Oxygen Saturation 97% 10/31/2017 7:26 AM CDT Inhaled Oxygen Concentration - - Weight 108.9 kg (240 lb) 09/06/2021 10:42 AM CDT Height 185.4 cm (6' 1) 09/06/2021 10:42 AM CDT Body Mass Index 31.66 09/06/2021 10:42 AM CDT Plan of Treatment Health Maintenance Due Date Last Done Comments MEDICARE AWV 12 MONTHS 1945 DTAP/TDAP/TD VACCINES (1 - Tdap) 1965 PNEUMOCOCCAL VACCINE 50+ (1 of 2 - PCV) 1965 ZOSTER VACCINE (1 of 2) 02/21/1996 Respiratory Syncytial Virus (RSV) Vaccine Pt: or over 60 yrs (1 - 1-dose 75+ series) 2021 DEPRESSION SCREENING 05/07/2024 COVID-19 VACCINE (3 - 2024-2 6 season) 2025 06/11/2020, 05/27/2020 INFLUENZA VACCINE (#1) 2025 02/11/2018 HEPATITIS B VACCINE Aged Out No longe r eligible based on patient's age to complete this topic HIB VACCINE Aged Out No longer eligi ble based on patient's age to complete this topic HPV VACCINE Aged Out No longer eligi ble based on patient's age to complete this topic MENINGOCOCCAL (Group B) VACCINE SHARED DECISION-MAKING Aged Out No longer eligible based on patient's age to complete this topic MENINGOCOCCAL GROUPS A/C/Y/W VACCINE Aged Out No longer eligible b ased on patient's age to complete this topic Medical Devices Implanted Type Area Incident Manager Device Identifier Shelf Expiration Date Model / Serial / Lot Timmy Bone Bowlegs Hv Implanted:Qty: 1 on 10/07/2014 by Armand Millard MD at [facility] Left: [employer] 05/06/2016 [id number] / / [id number] Tibial I Beam Fix Bar 83mm Implanted:Qty: 1 on 10/07/2014 by Armand Millard MD at [facility] Left: Knee [employer] 05/06/2024 [id number] / / [id number] Comp Fem Lt 72.5mm Implanted:Qty: 1 on 10/07/2014 by Armand Millard MD at [facility] Left: Knee [employer] 08/21/2024 [id number] / / [id number] Butn Pat Arcom Wire Polyeth Sm 31 X 8mm Implanted:Qty: 1 on 10/07/2014 by Armand Millard MD at [facility] Left: Knee [employer] 07/10/2019 [id number] / / [id number] Vangrd Ant Stblzd Brg 14mm X 83mm Implanted:Qty: 1 on 10/07/2014 by Armand Millard MD at [facility] Left: Knee [employer] 08/04/2016 [id number] / / [id number] Brng [id number] Vngrd Arcm Kn Ant Stab Implanted:Qty: 1 on 10/29/2017 by Armand Millard MD at [facility] Right: Knee [employer] 09/28/2022 [id number] / / [id number] Cmnt Bone Cblt 40gm Hvisc Strl Implanted:Qty: 1 on 10/29/2017 by Armand Millard MD at [facility] Right: Knee [employer] 01/04/2019 [id number] / / [id number] Cmpnt Ptlr 31mm 1 Pg Wire Ascnt Arcm Kn Implanted:Qty: 1 on 10/29/2017 by Armand Millard MD at [facility] Right: Knee [employer] 09/05/[id number] / / [id number] Cmpnt Fem Kn Rt Cr Cmnt Prm Vngrd Intlk 75mm Implanted:Qty: 1 on 10/29/2017 by Armand Millard MD at [facility] Right: Knee [employer] 09/22/2027 [id number] / / [id number] Tray Tib 79mm Kn Cocr I Beam Implanted:Qty: 1 on 10/29/2017 by Armand Millard MD at [facility] Right: Knee [employer] 09/01/2027 [id number] / / [id number] Insurance MEDICARE [facility] MEDICARE MEDICARE AARP Advance Directives Documents on File Type Date Recorded Patient Program Director/Traffic Director Expl anation Adv Directive/Living Will/POA 11/01/2017 9:40 PM Adv Directive/Living Will/POA 10/29/2017 poa * Full Code (Latest Code Status on File) Date Activated Date Inactivated Comments 10/29/2017 1:15 PM 10/31/2017 2:05 PM * Full Code Date Activated Date Inactivated Comments 10/07/2014 10:53 AM 10/09/2014 1:39 PM Care Teams Apple Press Operator Relationship Specialty [place] [address] [place] [address] PCP - General Internal Medicine 01/01/14 [place] [address] [address] [place] [address] Orthopedic Surgery 01/01/14 Calin Ledbetter MD [address] [place] [address] Scarf Gluer Cardiovascular Disease 09/21/14
--- OUTSIDE RECORDS SUMMARY | 2025-03-30 00:30 | XMS_ITS | Encounter Summary ---
Author Organization [facility] Address [address] [place] [address] [place] [address] Care Team Providers Care Detailer Name Role Phone Armand Millard MD Unavailable [phone] Christopher Bass MD Primary Care Provider Calin Ledbetter MD Unavailable [phone] Encounter Details Date Type Department Care Team (Late st Contact Info) Description 04/02/2019 Lab Requisition [facility] DermPath Lab [address] [place] [id number] Lázaro [place] [address] Social History Tobacco Use Types Packs/Day Years [...] on file 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 Answer Date of Assessment Author No 10/29/2017 1:31 PM Roman Caceres RN * Does person have difficulty doing errands alone? Answer Date of Assessment Author No 10/29/2017 1:31 PM Roman Caceres RN documented as of this encounter Mental Status * Does person have difficulty concentrating/remembering/making decisions? Answer Entry Date Author No 10/29/2017 1:31 PM Roman Caceres RN documented in this encounter Plan of Treatment Not on file documented as of this encounter Procedures Procedure Name Priority Date/Time Associated Diagnosis Comments DERMATOPATHOLOGY Routine 04/01/2019 12:0 0 AM WINDOW INSTALLATION SUBCONTRACTOR documented in this encounter Results * DERMATOPATHOLOGY (04/01/2019 12:00 AM WINDOW INSTALLATION SUBCONTRACTOR) Case Report Dermatopathology Report Case: [id number] Authorizing Provider: Lázaro Bryan MD Collected: 04/01/2019 12:00 AM Ordering Location: [facility] DermPath Lab Received: 04/02/2019 01:45 PM Pathologist: Brook Golden MD Specimen: Skin, right mid extensor forearm 9 8:37 PM [facility] DERMATOPATHOLOGY LABORATORY Final Diagnosis Specimen A. SKIN, right mid extensor forearm: ATYPICAL SQUAMOUS PROLIFERATION (D48.5) (see microscopic description and comment) 9 8:37 PM [facility] DERMATOPATHOLOGY LABORATORY at [address] [facility] Clinical History R/O KA vs cyst 9 8:37 PM [facility] DERMATOPATHOLOGY LABORATORY Gross Description Specimen A: Received is one formalin filled container labeled with the patient's name and designated right mid extensor forearm. The specimen consists of a shave biopsy measuring [id number] mm. Jar 0. 9 8:37 PM [facility] DERMATOPATHOLOGY LABORATORY Microscopic Description Specimen A. SKIN, right mid extensor forearm: Sections show an atypical well-differentiated cystic squamous proliferation with foci of keratinocyte atypia. There is focal parakeratosis and associated lymphoid infiltrate. Background solar elastosis and dermal fibrosis are present. The lesion extends to the base of the specimen. Additional deeper sections were obtained and reviewed. COMMENT: The histological differential diagnosis includes a well-differentiated squamous-lined cyst with atypia and squamous cell carcinoma with cystic features. 9 8:37 PM [facility] DERMATOPATHOLOGY LABORATORY Disclaimer An external and internal positive and negative controls are appropriate for the histochemical, immunohistochemical and immunofluorescence stain(s) in this case (if any), except where stated explicitly. The performance characteristics of the stain(s) cited in this report were developed and its performance characteristic determined by the Dermatopathology Laboratory at [facility], directed by Dr. Rylee Cabrera. These tests need not be, and therefore are not, approved by the [place] Food and Drug Administration. The tests are used for clinical purposes. Billing Codes Specimen Charges Stain Charges 90075 1 9 8:37 PM WINDOW INSTALLATION SUBCONTRACTOR DERMATOPATHOLOGY LABORATORY Embedded Images 9 8:37 PM WINDOW INSTALLATION SUBCONTRACTOR DERMATOPATHOLOGY LABORATORY Pathology/Cytolog y TISSUE SPECIMEN FROM SKIN / Unknown 04/01/2019 04/02/2019 1:45 PM WINDOW INSTALLATION SUBCONTRACTOR Lázaro Bryan MD LAB - PATHOLOGY/CYTOLOGY ORD ERABLES Final Result DERMATOPATHOLOGY LABORATORY [facility] - Department of Dermatology [address] [place] [address], 5th Floor Lab [address] [phone] documented in this encounter Visit Diagnoses Not on filedocumented in this encounter Additional Health Concerns Infection Onset Date Last Indicated Resolved Time COVID-19 Under Investigation 10/11/2019 10/10/2019 10/11/2019 10:22 PM CDT documented as of this encounter Care Teams Detailer Relationship Specialty [place] [address] [place] [address] PCP - General Internal Medicine 01/01/14 [place] [address] [address] [place] [address] Orthopedic Surgery 01/01/14 Calin Ledbetter MD [address] [place] [address] Metal Wire Coating Operator Cardiovascular Disease 09/21/14 documented as of this encounter
--- OUTSIDE RECORDS SUMMARY | 2025-03-30 00:30 | XMS_ITS | Encounter Summary ---
Author Organization [facility] Address [address] [place] [address] [place] [address] Care Team Providers Care Grocery Team Member Name Role Phone Armand Millard MD Unavailable [phone] Christopher Bass MD Primary Care Provider [phone] Calin Ledbetter MD Unavailable [phone] Encounter Details Date Type Department Care Team (Late st Contact Info) Description 11/17/2022 Lab Requisition [facility] - DermPath Lab [address] [place] [phone] Lázaro Bryan MD [place] [address] Social History Tobacco Use Types Packs/Day Years [...] on file 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 Gender Identity Not on file Sexual Orientation [...] Priority Date/Time Associated Diagnosis Comments DERMATOPATHOLOGY Routine 11/15/2022 12:0 0 AM CDT documented in this encounter Results * DERMATOPATHOLOGY (11/15/2022 12:00 AM CDT) Case Report Dermatopathology Report Case: [id number] Authorizing Provider: Lázaro Bryan MD Collected: 11/15/2022 12:00 AM Ordering Location: [facility] DermPath Lab Received: 11/17/2022 09:35 AM Pathologist: Desiree Connelly MD Specimen: Skin, left lat sup calf 3 1:39 PM CDT DERMATOPATHOLOGY LABORATORY Amended Report Due to Clerical Error, protocol should be curettage and desiccation instead of shave. 1:39 PM CDT DERMATOPATHOLOGY LABORATORY Final Diagnosis Specimen A. SKIN, left lat sup calf: DERMAL SCAR, PRESENT AT MARGIN RESIDUAL SQUAMOUS CELL CARCINOMA NOT IDENTIFIED (L90.5) (see comment) 3 1:39 PM CDT DERMATOPATHOLOGY LABORATORY Amendment electronically signed by Desiree Connelly MD on 11/20/2022 at 1339 CDT at 1254 CDT Clinical History Bx proven SCCIS 3 1:39 PM CDT DERMATOPATHOLOGY LABORATORY Gross Description Specimen A: Received is one formalin filled container labeled with the patient's name and designated left lat sup calf. The specimen consists of a curettage and desiccation biopsy measuring [id number]. Jar 0. 3 1:39 PM CDT DERMATOPATHOLOGY LABORATORY Microscopic Description Specimen A. SKIN, left lat sup calf: There are fibroblasts and collagen bundles oriented parallel to the skin surface. There are elongated blood vessels, some of which are oriented perpendicular to the skin surface. No residual squamous cell carcinoma is identified. This scar is present at the margin of the specimen. COMMENT: Given the superficial nature of the specimen, a deeper dermal process cannot be excluded. 3 1:39 PM CDT DERMATOPATHOLOGY LABORATORY Disclaimer An external and internal positive and negative controls are appropriate for the histochemical, immunohistochemical and immunofluorescence stain(s) in this case (if any), except where stated explicitly. The performance characteristics of the stain(s) cited in this report were developed and its performance characteristic determined by the Dermatopathology Laboratory at [facility], directed by Dr. Rylee Cabrera. These tests need not be, and therefore are not, approved by the [place] Food and Drug Administration. The tests are used for clinical purposes. Billing Codes Specimen Charges Stain Charges 48454 1 3 1:39 PM CDT DERMATOPATHOLOGY LABORATORY Embedded Images 3 1:39 PM CDT DERMATOPATHOLOGY LABORATORY Pathology/Cytolog y TISSUE SPECIMEN FROM SKIN / Unknown 11/15/2022 11/17/2022 9:35 AM CDT Lázaro Bryan MD LAB - PATHOLOGY/CYTOLOGY ORD ERABLES Edited Result - Final DERMATOPATHOLOGY LABORATORY [facility] - Department of Dermatology [address] [place] [address], [facility] [phone] documented in this encounter Visit Diagnoses Not on filedocumented in this encounter Care Teams Grocery Team Member Relationship Specialty [place] [address] [place] [address] PCP - General Internal Medicine 01/01/14 [place] [address] [address] Orthopedic Surgery 01/01/14 Calin Ledbetter MD [address] [place] [address] Electric Truck Driver Cardiovascular Disease 09/21/14 documented as of this encounter
--- OUTSIDE RECORDS SUMMARY | 2025-03-30 00:30 | XMS_ITS | Encounter Summary ---
Author Organization [facility] Address [address] [place] [address] Care Team Providers Care [employer] Gold Attendant Name Role Phone Christopher Bass MD Primary Care Provider [phone] Grabiel Barreto MD Primary Care Provider Christopher Bass MD Primary Care Provider [phone] Grabiel Barreto MD Primary Care Provider Reason for Referral * Diagnostic Imaging (Routine) - Closed Specialty Diagnoses / Procedures Referred By Contac t Referred To Contact Diagnoses Pain and swelling of right ankle Procedures XR Ankle Right 2 Views Christopher Bass MD Phone: tel: fax: [address] [address] Referral ID Status Reason Start Date Expiration Date Visits Re quested Visits Authorized [id number] Closed 02/18/2018 08/30/2019 1 1 Encounter Details Date Type Department Care Team (Late st Contact Info) Description 02/18/2018 Community Orders [facility] EpicCare Link Christopher Bass MD [address] [facility] [address] [place] [address] Pain and swelling of right ankle (Primary Dx) Social History Tobacco Use Types Packs/Day Years Used Date Smoking Tobacco: Former Sex and Gender Information Value Date Recorded Sex Assigned at Not on file 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 2. At least mild-moderate osteoarthritis of the posterior subtalar joint. 3. 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 Electronically signed by: Dustin Odonnell M.D. Narrative 2018 7:41 AM CDT EXAMINATION: Right ankle 2 views HISTORY: Right ankle pain FINDINGS: 2 views of the right ankle were obtained. No prior exams are available for comparison. There is moderate to severe right tibiotalar joint osteoarthritis with extensive heterotopic ossification involving the anterior tibiotalar capsule. There is at least mild-moderate osteoarthritis of the posterior subtalar joint. There is some heterotopic ossification in the area of the deltoid ligament. There is no evidence of fracture. Procedure Note Dustin Odonnell MD - 2018 EXAMINATION: Right ankle 2 views HISTORY: Right ankle pain FINDINGS: 2 views of the right ankle were obtained. No prior exams are available for comparison. There is moderate to severe right tibiotalar joint osteoarthritis with extensive heterotopic ossification involving the anterior tibiotalar capsule. There is at least mild-moderate osteoarthritis of the posterior subtalar joint. There is some heterotopic ossification in the area of the deltoid ligament. There is no evidence of fracture. IMPRESSION: 1. 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 2. At least mild-moderate osteoarthritis of the posterior subtalar joint. 3. 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 Electronically signed by: Dustin Odonnell M.D. Christopher Bass MD IMG XR PROCEDURES Final Result documented in this encounter Visit Diagnoses Diagnosis Pain and swelling of right ankle- Primary Pain and swelling of right ankle documented in this encounter Additional Health Concerns Infection [...] documented as of this encounter Care Teams [employer] Gold Attendant Relationship Specialty Start Date End Date Christopher Bass MD [address] [address] PCP - General 08/22/16 11/03/20 Grabiel Barreto MD [address] [address] PCP - General Endocrinology Diabetes & Metabolism 11/04/20 12/13/20 Christopher Bass MD [address] [address] PCP - General 12/14/20 02/22/21 Grabiel Barreto MD [address] [address] PCP - General Endocrinology Diabetes & Metabolism 02/23/21 documented as of this encounter
--- OUTSIDE RECORDS SUMMARY | 2025-03-30 00:30 | XMS_ITS | Encounter Summary ---
Author Organization [facility] Address [address] [place] [address] [place] [address] Care Team Providers Care Telegraph Plant Maintainer Name Role Phone Armand Millard MD Unavailable [phone] Christopher Bass MD Primary Care Provider Calin Ledbetter MD Unavailable [phone] Encounter Details Date Type Department Care Team (Late st Contact Info) Description 10/26/2021 Lab Requisition 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 Answer Date of Assessment Author No 10/29/2017 1:31 PM CDT Roman Soto RN documented as of this encounter Mental Status * Does person have difficulty concentrating/remembering/making decisions? Answer Entry Date Author No 10/29/2017 1:31 PM AMIT Roman Soto RN documented in this encounter Plan of Treatment Not on file documented as of this encounter Procedures Procedure Name Priority Date/Time Associated Diagnosis Comments DERMATOPATHOLOGY Routine 10/25/2021 12:0 0 AM CDT documented in this encounter Results * DERMATOPATHOLOGY (10/25/2021 12:00 AM CDT) Case Report Dermatopathology Report Case: [id number] Authorizing Provider: Lázaro Bryan MD Collected: 10/25/2021 12:00 AM Ordering Location: [facility] DermPath Lab Received: 10/26/2021 10:37 AM Pathologist: Desiree Connelly MD Specimens: A) - Skin, right inner leg B) - Skin, left medial calf 2 2:04 PM CDT DERMATOPATHOLOGY LABORATORY Final Diagnosis Specimen A. SKIN, right inner leg: SQUAMOUS CELL CARCINOMA IN SITU, PRESENT AT THE BASE OF THE SPECIMEN (D04.71) (see microscopic description and comment) Specimen B. 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 2 2:04 PM CDT DERMATOPATHOLOGY LABORATORY Gross Description Specimen A: Received is one formalin filled container labeled with the patient's name and designated right inner leg. The specimen consists of a shave biopsy measuring [id number]. Jar 0. Specimen B: Received is one formalin filled container labeled with the patient's name and designated left medial calf. The specimen consists of a shave biopsy measuring [id number]. Jar 0. 2 2:04 PM CDT DERMATOPATHOLOGY LABORATORY Microscopic Description Specimen A. SKIN, right inner leg: The epidermis shows parakeratosis, full thickness disorderly maturation of keratinocytes, mitoses at different levels, and dyskeratotic cells. The lesion extends to the base of the biopsy. COMMENT: An invasive squamous cell carcinoma cannot be ruled out. Specimen B. SKIN, left medial calf: The epidermis shows parakeratosis, full thickness disorderly maturation of keratinocytes, mitoses at different levels, and dyskeratotic cells. 2 2:04 PM CDT DERMATOPATHOLOGY LABORATORY Disclaimer An external and internal positive and negative controls are appropriate for the histochemical, immunohistochemical and immunofluorescence stain(s) in this case (if any), except where stated explicitly. The performance characteristics of the stain(s) cited in this report were developed and its performance characteristic determined by the Dermatopathology Laboratory at [facility], directed by Dr. Rylee Cabrera. These tests need not be, and therefore are not, approved by the [place] Food and Drug Administration. The tests are used for clinical purposes. Billing Codes Specimen Charges Stain Charges [address] 1 1 2 2:04 PM CDT DERMATOPATHOLOGY LABORATORY Embedded Images 2 2:04 PM CDT DERMATOPATHOLOGY LABORATORY Pathology/Cytology TISSUE SPECIMEN FROM SKIN / Unknown 10/25/2021 10/26/2021 10:37 AM CDT Miscellaneous samples (specimen) TISSUE SPECIMEN FROM SKIN / Unknown 10/25/2021 10/26/2021 10:37 AM CDT Lázaro Bryan MD LAB - PATHOLOGY/CYTOLOGY ORD ERABLES Final Result DERMATOPATHOLOGY LABORATORY [facility] - Department of Dermatology [address], [address] [phone] documented in this encounter Visit Diagnoses Not on filedocumented in this encounter Care Teams Telegraph Plant Maintainer Relationship Specialty [place] [address] [place] [address] PCP - General Internal Medicine 01/01/14 [place] [address] [place] [address] Orthopedic Surgery 01/01/14 Calin Ledbetter MD [address] [place] [address] Precipitation Equipment Tender Cardiovascular Disease 09/21/14 documented as of this encounter
--- OUTSIDE RECORDS SUMMARY | 2025-03-30 00:30 | XMS_ITS | Encounter Summary ---
Author Organization [facility] Healthcare Address [address] [place] [address] Care Team Providers Care Compact Assembler Name Role Phone Christopher Bass MD Primary Care Provider [phone] Grabiel Barreto MD Primary Care Provider Christopher Bass MD Primary Care Provider [phone] Grabiel Barreto MD Primary Care Provider Reason for Referral * Diagnostic Imaging (Routine) - Closed Specialty Diagnoses / Procedures Referred By Contac t Referred To Contact Radiology Diagnoses Degenerative lumbar spinal stenosis Procedures MRI Lumbar Spine WO Contrast Christopher Bass MD Phone: tel: fax: [address] [address] Referral ID Status Reason Start Date Expiration Date Visits Re quested Visits Authorized [id number] Closed 01/01/2018 07/13/2019 1 1 Encounter Details Date Type Department Care Team (Late st Contact Info) Description 01/01/2018 Community Orders [facility] EpicCare Link Christopher Bass MD [address] [facility] [address] [place] [address] Degenerative lumbar spinal stenosis (Primary Dx) Social History Tobacco Use Types Packs/Day Years Used Date Smoking Tobacco: Former Sex and Gender Information Value Date Recorded Sex Assigned at Not on file 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 Gender Identity Not on file Sexual Orientation Not on file documented as of this encounter Plan of Treatment Scheduled Procedures Name Priority Associated Diagnoses Date/Ti sc COLONOSCOPY Colon cancer screening COLONOSCOPY Screening for malignant neoplasm of colon COLONOSCOPY Colon cancer screening documented as of this encounter Results * MRI Lumbar Spine WO Contrast (01/03/2018 12:12 PM CDT) Anatomical Region Laterality Modality Spine N/A Magnetic Resonan ce 01/03/2018 1:58 PM CDT Impressions 01/03/2018 3:10 PM CDT Moderate degenerative changes of the lumbar spine as described in detail above, with interval worsening of degenerative changes at L4-L5 with severe spinal canal stenosis. Electronically signed by: Cata Reddy M.D. Narrative 01/03/2018 3:10 PM CDT EXAMINATION: Magnetic resonance imaging (MRI) of the lumber spine without contrast. HISTORY: Low back pain. TECHNIQUE: Multiplanar multi-weighted MRI of the lumbar spine was performed without intravenous contrast using the standard lumbar spine protocol. COMPARISON: 09/15/2016. FINDINGS: There is mild retrolisthesis of L5 on S1.. There is a T1 and T2 hyperintense lesion in the vertebral body likely representing a hemangioma.. There are no compression fractures. The conus medullaris terminates at the level of L1-L2. The distal spinal cord signal intensity is normal. There are no annular fissures identified. Limited views of the abdomen and pelvis show no soft tissue abnormality. The aorta is normal. L1-L2: There is a small disc bulge. There is mild bilateral facet arthropathy. There is no neuroforaminal stenosis. There is no spinal canal stenosis. L2-L3: There is a small disc bulge. There is mild bilateral facet arthropathy. There is mild bilateral neuroforaminal stenosis. There is mild spinal canal stenosis L3-L4: There is a disc bulge. There is moderate bilateral facet arthropathy. There is mild bilateral neuroforaminal stenosis. There is moderate spinal canal stenosis L4-L5: There is a large disc bulge. There is severe bilateral facet arthropathy. There is moderate right and mild left neuroforaminal stenosis. There is ligamentum flavum enfolding and severe spinal canal stenosis - L5-S1: The disc is normal in configuration. There is moderate bilateral facet arthropathy. There is moderate bilateral neuroforaminal stenosis. There is no spinal canal stenosis Procedure Note Cata Reddy MD - 01/03/2018 EXAMINATION: Magnetic resonance imaging (MRI) of the lumber spine without contrast. HISTORY: Low back pain. TECHNIQUE: Multiplanar multi-weighted MRI of the lumbar spine was performed without intravenous contrast using the standard lumbar spine protocol. COMPARISON: 09/15/2016. FINDINGS: There is mild retrolisthesis of L5 on S1.. There is a T1 and T2 hyperintense lesion in the vertebral body likely representing a hemangioma.. There are no compression fractures. The conus medullaris terminates at the level of L1-L2. The distal spinal cord signal intensity is normal. There are no annular fissures identified. Limited views of the abdomen and pelvis show no soft tissue abnormality. The aorta is normal. L1-L2: There is a small disc bulge. There is mild bilateral facet arthropathy. There is no neuroforaminal stenosis. There is no spinal canal stenosis. L2-L3: There is a small disc bulge. There is mild bilateral facet arthropathy. There is mild bilateral neuroforaminal stenosis. There is mild spinal canal stenosis L3-L4: There is a disc bulge. There is moderate bilateral facet arthropathy. There is mild bilateral neuroforaminal stenosis. There is moderate spinal canal stenosis L4-L5: There is a large disc bulge. There is severe bilateral facet arthropathy. There is moderate right and mild left neuroforaminal stenosis. There is ligamentum flavum enfolding and severe spinal canal stenosis - L5-S1: The disc is normal in configuration. There is moderate bilateral facet arthropathy. There is moderate bilateral neuroforaminal stenosis. There is no spinal canal stenosis IMPRESSION: Moderate degenerative changes of the lumbar spine as described in detail above, with interval worsening of degenerative changes at L4-L5 with severe spinal canal stenosis. Electronically signed by: Cata Reddy M.D. Christopher Bass MD IMG MRI PROCEDURES Final Resul t documented in this encounter Visit Diagnoses Diagnosis Degenerative lumbar spinal stenosis- Primary Spinal stenosis of lumbar region Degenerative lumbar spinal stenosis Spinal stenosis of lumbar region documented in this encounter Additional Health Concerns [...] documented as of this encounter Care Teams Compact Assembler Relationship Specialty Start Date End Date Christopher Bass MD [address] [address] PCP - General 08/22/16 11/03/20 Grabiel Barreto MD [address] [address] PCP - General Endocrinology Diabetes & Metabolism 11/04/20 12/13/20 Christopher Bass MD [address] [address] PCP - General 12/14/20 02/22/21 Grabiel Barreto MD [address] [address] PCP - General Endocrinology Diabetes & Metabolism 02/23/21 documented as of this encounter
--- OUTSIDE RECORDS SUMMARY | 2025-03-30 00:30 | XMS_ITS | Encounter Summary ---
Author Organization [facility] Address [address] [place] [address] [place] [address] Care Team Providers Care Medicaid Billing Specialist Name Role Phone Armand Millard MD Unavailable [phone] Christopher Bass MD Primary Care Provider [phone] Calin Ledbetter MD Unavailable [phone] Encounter Details Date Type Department Care Team (Late st Contact Info) Description 10/25/2022 Lab Requisition [facility] - DermPath Lab [address] [place] [id number] Lázaro [place] [address] Social History Tobacco Use Types Packs/Day Years [...] on file 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 Gender Identity Not on file Sexual [...] Priority Date/Time Associated Diagnosis Comments DERMATOPATHOLOGY Routine 10/24/2022 12:0 0 AM CDT documented in this encounter Results * DERMATOPATHOLOGY (10/24/2022 12:00 AM CDT) Case Report Dermatopathology Report Case: [id number] Authorizing Provider: Lázaro Bryan MD Collected: 10/24/2022 12:00 AM Ordering Location: [facility] DermPath Lab Received: 10/25/2022 02:30 PM Pathologist: Lyla Cabrera MD Specimens: A) - Skin, left lat sup calf B) - Skin, right lower ant lat leg 3 3:26 PM CDT DERMATOPATHOLOGY LABORATORY Final Diagnosis Specimen A. SKIN, left lat sup calf: SQUAMOUS CELL CARCINOMA IN SITU (RODRIGUEZ'S DISEASE) ARISING IN AN ACTINIC KERATOSIS (D04.72) Specimen B. SKIN, right lower ant lat leg: LICHEN PLANUS-LIKE KERATOSIS (BENIGN LICHENOID KERATOSIS) (L82.1) 3 3:26 PM CDT DERMATOPATHOLOGY LABORATORY at 1526 CDT Clinical History A-B: R/O SCC 3 3:26 PM CDT DERMATOPATHOLOGY LABORATORY Gross Description Specimen A: Received is one formalin filled container labeled with the patient's name and designated left lat sup calf. The specimen consists of a shave biopsy measuring 20m30u0 mm. Jar 0. Specimen B: Received is one formalin filled container labeled with the patient's name and designated right lower ant lat leg. The specimen consists of a shave biopsy measuring [id number] mm. Jar 0. 3 3:26 PM T DERMATOPATHOLOGY LABORATORY Microscopic Description Specimen A. SKIN, left lat sup calf: The epidermis shows parakeratosis, full thickness disorderly maturation of keratinocytes, mitoses at different levels, and dyskeratotic cells. There is focal parakeratosis. The lower half of the epidermis shows disorderly maturation of keratinocytes with nuclear pleomorphism. Specimen B. SKIN, right lower ant lat leg: The epidermis is mildly acanthotic. There is a lichenoid infiltrate with vacuolar changes of basilar keratinocytes and scattered necrotic keratinocytes. 3 3:26 PM T DERMATOPATHOLOGY LABORATORY Disclaimer An external and internal positive and negative controls are appropriate for the histochemical, immunohistochemical and immunofluorescence stain(s) in this case (if any), except where stated explicitly. The performance characteristics of the stain(s) cited in this report were developed and its performance characteristic determined by the Dermatopathology Laboratory at [facility], directed by Dr. Rylee Cabrera. These tests need not be, and therefore are not, approved by the [place] Food and Drug Administration. The tests are used for clinical purposes. Billing Codes Specimen Charges Stain Charges 04112 23146 1 1 3 3:26 PM CDT DERMATOPATHOLOGY LABORATORY Embedded Images 3 3:26 PM CDT DERMATOPATHOLOGY LABORATORY Pathology/Cytology TISSUE SPECIMEN FROM SKIN / Unknown 10/24/2022 10/25/2022 2:30 PM CDT Miscellaneous samples (specimen) TISSUE SPECIMEN FROM SKIN / Unknown 10/24/2022 10/25/2022 2:30 PM CDT us Lázaro Bryan MD LAB - PATHOLOGY/CYTOLOGY ORD ERABLES Final Result DERMATOPATHOLOGY LABORATORY [facility] - Department of Dermatology [address] [place], [place] [address] [phone] documented in this encounter Visit Diagnoses Not on filedocumented in this encounter Care Teams Medicaid Billing Specialist Relationship Specialty [place] [address] [facility] [address] [place] [address] PCP - General Internal Medicine 01/01/14 [place] [address] [facility] [address] [place] [address] Orthopedic Surgery 01/01/14 Calin Ledbetter MD [address] [place] [address] Health Information Coder Cardiovascular Disease 09/21/14 documented as of this encounter
--- OUTSIDE RECORDS SUMMARY | 2025-03-30 00:30 | XMS_ITS | Encounter Summary ---
Author Organization [facility] Address [address] [place] [address] Phone Care Team Providers Care Locomotive Engineer Name Role Phone Grabiel Barreto MD Primary Care Provider Encounter Details Date Type Department Care Team (Late st Contact Info) Description 03/24/2025 Telephone [facility] Medicine Cardiology [address] [facility] Advanced Medicine 8th [place] [address] [place] [address] Calin Ledbetter MD [address] [facility] [address] [place] [address] Social History Tobacco Use Types Packs/Day Years Used Date Smoking Tobacco: Some Days Cigarettes Started: 1964; Last attempted to quit: 1990 Cigars Smokeless Tobacco: Never Alcohol Use Standard Drinks/Week Comments Yes 0 [...] on file 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 ANTS CUTTER documented in this encounter Plan of Treatment Scheduled Procedures Name Priority Associated Diagnoses Date/Ti dc COLONOSCOPY Colon cancer screening COLONOSCOPY Screening for malignant neoplasm of colon COLONOSCOPY Colon cancer screening documented as of this encounter Visit Diagnoses Not on filedocumented in this encounter Care Teams Locomotive Engineer Relationship Specialty Start Date End Date Grabiel Barreto MD PCP - General Endocrinology Diabetes & Metabolism 02/23/21 documented as of this encounter
--- OUTSIDE RECORDS SUMMARY | 2025-03-30 00:30 | XMS_ITS | Encounter Summary ---
Author Organization [facility] Health Address [address] [place] [address] Care Team Providers Care Senior Procurement Manager Name Role Phone Armand Millard MD Unavailable [phone] Christopher Bass MD Primary Care Provider [phone] Calin Ledbetter MD Unavailable [phone] Encounter Details Date Type Department Care Team (Late st Contact Info) Description 10/15/2017 [facility] Outpatient Visit [facility] [address] [place] [address] [place] [address] [address] Social History Tobacco Use Types Packs/Day Years Used Date Smoking Tobacco: Some Days Cigars Last attempted to quit: 08/21/1990 Smokeless Tobacco: Never Comments:cigars every few da ys Alcohol Use Standard Drinks/Week Comments Yes 0 (1 standard drink = 0.6 oz pur e alcohol) three times a week; social Sex and Gender Information Value Date Recorded Sex Assigned at Not on file 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 Answer Date of Assessment Author No 10/07/2014 11:19 AM Marly Keane RN * Is person blind or have serious difficulty seeing? Answer Date of Assessment Author No 10/07/2014 11:19 AM Marly Keane RN * Does person have serious difficulty walking/climbing stairs? Answer Date of Assessment Author No 10/07/2014 11:19 AM Marly Keane RN * Does person have difficulty dressing/bathing? Answer Date of Assessment Author No 10/07/2014 11:19 AM Marly Keane RN * Does person have difficulty doing errands alone? Answer Date of Assessment Author No 10/07/2014 11:19 AM Marly Keane RN documented as of this encounter Mental Status * Does person have difficulty concentrating/remembering/making decisions? Answer Entry Date Author No 10/07/2014 11:19 AM Marly Keane RN documented in this encounter Plan of Treatment Not on file documented as of this encounter Visit Diagnoses Not on filedocumented in this encounter Additional Health Concerns Infection Onset Date Last Indicated Resolved Time COVID-19 Under Investigation 10/11/2019 10/10/2019 10/11/2019 10:22 PM CDT documented as of this encounter Care Teams Senior Procurement Manager Relationship Specialty [place] [address] [facility] [address] [place] [address] PCP - General Internal Medicine 01/01/14 [place] [address] [facility] [address] [place] [address] Orthopedic Surgery 01/01/14 Calin Ledbetter MD [address] [place] [address] Atm Mechanic Cardiovascular Disease 09/21/14 documented as of this encounter
--- NOTE | 2025-03-30 07:27 | WPDHPUPDATE1 ---
History and Physical Update Update Date/Time: 03/30/25 07:27 History and Physical has been reviewed, including an updated exam of the patient. There are NO changes in the patient's condition. Risks, benefits, and alternatives have been discussed and questions answered. Patient agrees to proceed with procedure.
[2025-03-30] MEDS: LACTATED RINGERS 1,000 ML 30 ML IV CONT (08:30)
--- NOTE | 2025-03-30 08:58 | WPDANESEPPF ---
Anes - Initial Pre Proc Eval Procedure: Operation Date: 03/30/25 09:00 Proposed Procedures p Bilateral Nasal Endoscopy with Nasal Cautery - Elton Cuevas MD Date/Time: 03/30/25 08:58 Surgeon: Elton Cuevas MD Pre Op Diagnosis: epistaxsis Patient Data Age: 80 Gender: M Height: 1.85 m Weight: 108.1 kg Last Vital Signs Temp 36.6 C 03/30/25 08:00 Pulse 85 03/30/25 08:00 Resp 16 03/30/25 08:00 BP 155/85 H 03/30/25 08:00 Pulse Ox 100 03/30/25 08:00 O2 Del Method Room Air 03/30/25 08:00 Allergies Allergy/AdvReac Type Severity Reaction Status Date / Time No Known Allergies Allergy Verified 03/30/25 07:58 Home Medications ?Medication ?Instructions ?Recorded ?Confirmed ?Type apixaban 5 mg tablet (Eliquis) 5 mg PO BID 12/15/19 03/30/25 History hydrochlorothiazide 25 mg tablet 25 mg PO DAILY 12/15/19 03/24/25 History shikkwkl-by-lymdq 300 mcg-K 60 1 tablet PO DAILY 12/15/19 03/24/25 History mcg-lycop 600 mcg-lutein 300 mcg tablet (Centrum Silver Men) spironolactone 25 mg tablet 25 mg PO DAILY 12/15/19 03/24/25 History lisinopril 40 mg tablet 40 mg PO BID 08/29/21 03/30/25 History amlodipine 10 mg tablet 10 mg PO DAILY 08/21/22 03/30/25 History mupirocin 2 % topical ointment 1 applic topical TID Nose Bleeds 10/22/23 03/24/25 Rx #15 grams allopurinol 100 mg tablet 100 mg PO TID 01/30/25 03/30/25 History erythromycin 5 mg/gram (0.5 %) eye 0.5 inch ophthalmic (eye) HS 01/30/25 03/24/25 History ointment Patient hx anesthesia problems: none Family hx anesthesia problems: none Results Review: All pre-operative results and documents have been reviewed as part of the pre-operative evaluation. [facility] Past Medical History Medical History YONNY (obstructive sleep apnea) Hypertension Hyperlipidemia A-fib Surgical History Surgical History History of foot surgery History of knee replacement History of prostate surgery History of back surgery Social History Social History Social History: CAFFEINE- DAILY Smoking packs per day: 0.75 Smoking cigarettes per day: 15.0 Years smoked: 25 Smoking pack-years: 18.75 Smoking status: Former smoker Tobacco type: cigarettes Smoking end date: 05/07/90 Additional smoking assessment comments: Still smokes 2 cigars a week golfing Alcohol intake: current Drinks per week: 6 Substance use: never Substance use type: does not use Lack of Transportation: No Lack of Food: Never True Current Housing: I Have Housing Concerned About Future Housing: No Difficulty Paying Gas/Electric Bills: No Difficulty Paying for Meds: No Currently Unemployed: No Education: Bachelor's Degree Difficulty w/ Childcare or Family Care: No Living arrangements: with family Occupation/Education: retired Spiritual care concerns: No Anes - Eval Final PreProcedure Day of Procedure 03/30/25 08:58 Patient weight: obese Heart: regular rate and rhythm Lungs: clear to auscultation Airway: Mallampati scale class II Neurological: alert and oriented Last oral intake: >/= 8 hours ASA classification: III Emergent: no Anesthetic plan: proceed Anesthesia type and monitoring: general LMA and standard monitoring Results Review: All pre-operative results and documents have been reviewed as part of the pre-operative evaluation. Informed Consent: The patient's anesthetic plan and its attendant risks and benefits were discussed with the patient/family/POA. Questions were solicited and answers provided to the satisfaction of the patient/family/POA.
[2025-03-30] MEDS: MUPIROCIN 2% OINT 22 GM TUBE 1 APPLIC EACH NARE (10:03)
--- NOTE | 2025-03-30 10:20 | W.PM.PROC2 ---
Procedure Note - Detailed Date of Procedure 03/30/25 Pre-op Diagnosis epistaxsis Post-op Diagnosis Same Procedure Performed 1. Bilateral nasal endoscopy 2. Right-sided complex endoscopic nasal cautery Surgeon Elton Cuevas MD Anesthesia General Indications See above Findings 3, telangiectatic nest of vessels 1 right vestibule near the floor, 2 is the anterior septum, 3 mid septum adjacent to the head of the middle turbinate. Description of Procedure Patient identified consent verified the preoperative holding area. Patient brought operating. Time-out performed general anesthesia induced LMA secured. Patient prepped draped position procedure confirmed 2nd time-out performed. Afrin-soaked pledgets placed on the right side 3 nest of vessels identified described above. They were cauterized combination of Bovie suction electrocautery setting of 10 as well as bipolar electrocautery setting of 10. Minimal bleeding about 1 cc. Patient tolerated the procedure well no bleeding with the procedure.. This was complex in nature recurred requiring multiple rounds of cautery. Patient tolerated the procedure very well no complications blood loss 1 cc. Care the patient given back to Anesthesiology. I performed all dictated portions procedure. All pledgets removed and accounted for. Estimated Blood Loss 1 Drains No Packing No Pathology None sent Complications No immediate complications Condition Stable Disposition PACU [facility] Billing Surgery - Charge Forward: Surgery Billing
== END 2025-03-30 11:26 | disposition home or self-care (01) ==
PROVIDERS: PCP Internal Medicine; Visit Provider Otolaryngology
PROC: (CPT 31238; principal; 2025-03-30 09:00)
DX: R04.0 Epistaxis (principal); E78.5 Hyperlipidemia, unspecified; I10 Essential (primary) hypertension; I48.91 Unspecified atrial fibrillation; G47.33 Obstructive sleep apnea (adult) (pediatric); F17.290 Nicotine dependence, other tobacco product, uncomplicated; E66.9 Obesity, unspecified; Z68.31 Body mass index [BMI] 31.0-31.9, adult; Z79.01 Long term (current) use of anticoagulants; Z79.899 Other long term (current) drug therapy; Z98.890 Other specified postprocedural states; Z98.1 Arthrodesis status
CPT/HCPCS: 31238; A9270; J2003; J2405; J2704; J7120